=== PATIENT | female | born 1965 | race Caucasian/White ===

== ENCOUNTER 2016-12-10 15:26 | Inpatient (IN) | payer OTHER, MEDICAID ==
--- NOTE | 2016-12-10 15:56 | EDM.PDOC ---
ED HPI GENERAL MEDICAL PROBLEM - General Chief Complaint: Neurological Problem Stated Complaint: DELUSIONAL Time Seen by Provider: 12/10/16 15:28 - History of Present Illness INITIAL COMMENTS - FREE TEXT/NARRATIVE: HISTORY AND PHYSICAL: History of present illness: Patient is a 51-year-old female who was recently released from rehabilitation after her prolonged hospitalization for overdose with multisystem organ failure who presents today with concern of increased confusion no fever chills nausea vomiting, or other concern Review of systems: As per history of present illness and below otherwise all systems reviewed and negative. Past medical history: As per history of present illness and as reviewed below otherwise noncontributory. Surgical history: As per history of present illness and as reviewed below otherwise noncontributory. Social history: No reported history of drug or alcohol abuse. Family history: As per history of present illness and as reviewed below otherwise noncontributory. Physical exam: HEENT: Atraumatic, normocephalic, pupils reactive, negative for conjunctival pallor, mucous membranes moist, throat clear, neck supple, nontender, trachea midline. The feeding tube noted Lungs: Clear to auscultation, breath sounds equal bilaterally, chest nontender. Heart: S1S2, regular, negative for clicks, rubs, or JVD. Abdomen: Soft, nondistended, mild tenderness in the epigastrium patient daughter states this is chronic related to pancreatitis. Negative for masses or hepatosplenomegaly. Negative for costovertebral tenderness. Pelvis: Stable nontender. Genitourinary: Deferred. Rectal: Deferred. Extremities: Atraumatic, negative for cords or calf pain. Neurovascular unremarkable. Neuro: Awake, alert, follows commands moves all extremities is oriented to Person and Pl., Limited but grossly nonfocal exam Diagnostics: CBC CMP lipase UA urine drug screen and ammonia level chest x-ray EKG Therapeutics: IV O2 monitor Impression: #1 history multisystem organ failure #2 history of hepatic encephalopathy #3 altered mental status Definitive disposition and diagnosis as appropriate pending reevaluation and review of above. 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 Cardiovascular History: Reports: None Respiratory History: Reports: None Gastrointestinal History: Reports: Pancreatitis Genitourinary History: Reports: Acute Renal Failure EDUCATIONAL RESOURCE COORDINATOR History: Reports: None Musculoskeletal History: Reports: None Neurological History: Reports: Seizure, Speech Problems Psychiatric History: Reports: Addiction, Anxiety, Depression, PTSD Endocrine/Metabolic History: Reports: Diabetes, Type II Hematologic History: Reports: B12 Deficiency, Blood Transfusion(s), Folic Acid Immunologic History: Reports: Immunosuppression Oncologic (Cancer) History: Reports: None Dermatologic History: Reports: None - Past Surgical History Head Surgeries/Procedures: Reports: None Other GI Surgeries/Procedures: NG tube placed September 2016 Social & Family History - Family History Family Medical History: Noncontributory - Tobacco Use Smoking Status *Q: Former Smoker Used Tobacco, but Quit: Yes Month Tobacco Last Used: september - Caffeine Use Caffeine Use: Reports: Soda - Recreational Drug Use Recreational Drug Use: No ED ROS GENERAL - Review of Systems Review Of Systems: ROS reveals no pertinent complaints other than HPI. ED EXAM, GENERAL - Physical Exam Exam: See Below (See dictation) Course - Vital Signs Last Recorded V/S: Last Vital Signs Temp 36.4 C 12/10/16 15:34 Pulse 75 12/10/16 15:34 Resp 14 12/10/16 15:34 BP 104/64 12/10/16 15:34 Pulse Ox 98 12/10/16 15:34 - Orders/Labs/Meds Orders: Active Orders 24 hr Category Date Time Status EKG Documentation Completion [RC] STAT Care 12/10/16 15:49 Active Oxygen Therapy, ED [RC] ASDIRECTED Care 12/10/16 15:49 Active Chest 1V Frontal [CR] Stat Exams 12/10/16 15:50 Taken CULTURE BLOOD [BC] Stat Lab 12/10/16 15:58 Received CULTURE BLOOD [BC] Stat Lab 12/10/16 16:20 Results CULTURE URINE [RM] Stat Lab 12/10/16 15:56 Uncollected DRUG SCREEN, URINE [URCHEM] Stat Lab 12/10/16 15:50 Uncollected UA W/MICROSCOPIC [URIN] Stat Lab 12/10/16 15:49 Uncollected Sodium Chloride 0.9% [Normal Saline] 1,000 ml Med 12/10/16 16:00 Active IV STAT Blood Culture x2 Reflex Set [OM.PC] Stat Oth 12/10/16 15:56 Ordered Medication Orders Sodium Chloride (Normal Saline) 1,000 mls @ 125 mls/hr IV STAT RUBÉN Last Admin: 12/10/16 16:45 Dose: 125 mls/hr Labs: Laboratory Tests 12/10/16 12/10/16 12/10/16 Range/Units 15:58 15:58 15:58 WBC 9.85 (4.0-11.0) K/uL RBC 4.02 L (4.30-5.90) M/uL Hgb 11.9 L (12.0-16.0) g/dL Hct 34.3 L (36.0-46.0) % MCV 85.3 (80.0-98.0) fL MCH 29.6 (27.0-32.0) pg MCHC 34.7 (31.0-37.0) g/dL RDW Std Deviation 44.5 (28.0-62.0) fl RDW Coeff of Bert 14 (11.0-15.0) % Plt Count 266 (150-400) K/uL MPV 10.40 (7.40-12.00) fL Neut % (Auto) 69.5 (48.0-80.0) % Lymph % (Auto) 14.6 L (16.0-40.0) % [place] % (Auto) 14.6 (0.0-15.0) % Eos % (Auto) 1.0 (0.0-7.0) % Baso % (Auto) 0.3 (0.0-1.5) % Neut # (Auto) 6.8 H (1.4-5.7) K/uL Lymph # (Auto) 1.4 (0.6-2.4) K/uL [place] # (Auto) 1.4 H (0.0-0.8) K/uL Eos # (Auto) 0.1 (0.0-0.7) K/uL Baso # (Auto) 0.0 (0.0-0.1) K/uL Nucleated RBC % 0.0 /100WBC Nucleated RBCs # 0 K/uL Sodium 122 L (136-146) mmol/L Potassium 4.8 (3.5-5.1) mmol/L Chloride 94 L (98-110) mmol/L Carbon Dioxide 18 L (21-31) mmol/L BUN 18 (6.0-23.0) mg/dL Creatinine 1.0 (0.6-1.5) mg/dL Est Cr Clr Drug Dosing 53.23 mL/min Estimated GFR (MDRD) 58.7 ml/min Glucose 217 H (60-110) mg/dL Calcium 9.5 (8.8-10.8) mg/dL Total Bilirubin 0.8 (0.1-1.5) mg/dL AST 20 (5-40) IU/L ALT 12 (8-54) IU/L Alkaline Phosphatase 100 (40-150) Ammonia 124 H (14-68) UG/DL Total Protein 7.7 (6.0-8.0) g/dL Albumin 3.6 (3.5-5.0) g/dL Globulin 4.1 H (2.0-3.5) g/dL Albumin/Globulin Ratio 0.9 L (1.3-2.8) Amylase 14 (10-90) U/L Lipase < 8 (7-80) U/L Meds: Medications Generic Name Dose Route Start Last Admin Trade Name Freq PRN Reason Stop Dose Admin Sodium Chloride 1,000 mls @ 125 mls/hr 12/10/16 16:00 12/10/16 16:45 Normal Saline IV 125 mls/hr STAT RUBÉN Administration Discontinued Medications Generic Name Dose Route Start Last Admin Trade Name Freq PRN Reason Stop Dose Admin Ondansetron HCl 4 mg 12/10/16 16:42 12/10/16 16:48 Zofran IVPUSH 12/10/16 16:43 4 mg ONETIME ONE Administration Departure - Departure Time of Disposition: 17:11 Disposition: Admitted As Inpatient 67 Condition: good Clinical Impression: Hepatic encephalopathy, Hyponatremia - Discharge Information Forms: ED Department Discharge - My Orders Last 24 Hours: My Active Orders 12/10/16 15:49 EKG Documentation Completion [RC] STAT Oxygen Therapy, ED [RC] ASDIRECTED UA W/MICROSCOPIC [URIN] Stat 12/10/16 15:50 Chest 1V Frontal [CR] Stat DRUG SCREEN, URINE [URCHEM] Stat 12/10/16 15:56 CULTURE URINE [RM] Stat Blood Culture x2 Reflex Set [OM.PC] Stat 12/10/16 15:58 CULTURE BLOOD [BC] Stat 12/10/16 16:00 Sodium Chloride 0.9% [Normal Saline] 1,000 ml IV STAT 12/10/16 16:20 CULTURE BLOOD [BC] Stat - Assessment/Plan Last 24 Hours: My Active Orders 12/10/16 15:49 EKG Documentation Completion [RC] STAT Oxygen Therapy, ED [RC] ASDIRECTED UA W/MICROSCOPIC [URIN] Stat 12/10/16 15:50 Chest 1V Frontal [CR] Stat DRUG SCREEN, URINE [URCHEM] Stat 12/10/16 15:56 CULTURE URINE [RM] Stat Blood Culture x2 Reflex Set [OM.PC] Stat 12/10/16 15:58 CULTURE BLOOD [BC] Stat 12/10/16 16:00 Sodium Chloride 0.9% [Normal Saline] 1,000 ml IV STAT 12/10/16 16:20 CULTURE BLOOD [BC] Stat
[2016-12-10] MEDS ORDERED: Sodium Chloride 0.9% 1,000 ML IV SCH (16:00)
[2016-12-10 16:35] LABS: CHLORIDE,CL 94 mmol/L (98-110); SODIUM,NA 122 mmol/L (136-146)
[2016-12-10] MEDS ORDERED: Ondansetron 4 MG/2 ML SDV IVPUSH ONE (16:42)
[2016-12-10] MEDS ORDERED: oxyCODONE 5 MG Tab PO ONE (17:56)
--- NOTE | 2016-12-10 18:10 | PCM.HP ---
H&P History of Present Illness - General Date of Service: 12/10/16 Admit Problem/Dx: metabolic encephalopathy Source of Information: Patient, Family History Limitations: Reports: No Limitations, Other (profoundly deaf) - History of Present Illness Initial Comments - Free Text/Narative: Dec 10, 2016: The patient is a 51-year-old lady who is presented to the emergency department with reported neurologic concerns. The patient has been admitted secondary to likely neurologic issues do to hyperammonemia. The patient will be admitted as observation.The patient is profoundly deaf from and is an accomplished lip reader. Patient's daughter is also with her. The patient is here out of concern for not having a primary care physician to followup with. The patient also had been recently released from hospitalization for prolonged visit secondary to multisystem organ failure along with rehabilitation. The patient accidentally had consumed large quantities of Tylenol PM and this had resulted in both hepatic and pancreatic damage. The patient has been fed with tube feedings via J-tube and is on pancreatic supplementation. The patient was admitted and noted to have an ammonia level at 124 mg/dL. The patient is alert and responsive to questioning and has been on outpatient lactulose as well. The patient has denied any fever or chills. She has had no nausea or vomiting. The patient's daughter was concerned about her confusion. The patient has been concerned about bloating from her parenteral feeding. She is wanting to have this formulation adjusted to help prevent some of the bloating and abdominal pain. The patient has been doing relatively well and she is concerned about being in the hospital once again. The patient has been in her usual state of health up at the present time. The patient has been able to participate in her history and physical. Onset of Symptoms: Reports: Gradual Duration of Symptoms: Reports: Day(s): Location: Reports: Head Quality: Reports: Other Severity: Mild Improves with: Reports: Medication Worsens with: Reports: None Associated Symptoms: Reports: Other Abdominal Pain Score (Numeric/FACES): 8 - Related Data Allergies/Adverse Reactions: Allergies Allergy/AdvReac Type Severity Reaction Status Date / Time No Known Allergies Allergy Verified 12/10/16 15:38 Home Medications: Home Meds Amylase/Lipase/Protease [Deisi GARCIA 24,000 Units] 1 cap PO 6XDAY 12/10/16 [History ] Citalopram [Celexa] 20 mg PO DAILY 12/10/16 [History] Insulin Glargine,Hum.Rec.Anlog [Lantus Solostar] 24 unit SQ BEDTIME 12/10/16 [ History] Lactulose 10 gm PO BEDTIME 12/10/16 [History] Magnesium Oxide [Magnesium] 400 mg PO BID 12/10/16 [History] Ondansetron [Zofran ODT] 4 mg PO Q8H 12/10/16 [History] Pantoprazole [ProTONIX] 40 mg PO BIDAC 12/10/16 [History] Spironolactone [Aldactone] 100 mg PO DAILY 12/10/16 [History] Thiamine [Vitamin B-1] 100 mg PO BEDTIME 12/10/16 [History] fentaNYL [Fentanyl] 75 mcg PERCUT 12/10/16 [History] oxyCODONE 5 mg PO Q4HR PRN 12/10/16 [History] Past Medical History HEENT History: Reports: Hard of Hearing Other HEENT History: 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, 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 Cardiovascular History: Reports: None Respiratory History: Reports: None Gastrointestinal History: Reports: Hepatitis, Pancreatitis Genitourinary History: Reports: Acute Renal Failure POST OFFICE MANAGER History: Reports: None Musculoskeletal History: Reports: None Neurological History: Reports: Seizure, Speech Problems Psychiatric History: Reports: Addiction, Anxiety, Depression, PTSD Endocrine/Metabolic History: Reports: Diabetes, Type II Hematologic History: Reports: B12 Deficiency, Blood Transfusion(s), Folic Acid Immunologic History: Reports: Immunosuppression Oncologic (Cancer) History: Reports: None Dermatologic History: Reports: None - Past Surgical History Head Surgeries/Procedures: Reports: None Other GI Surgeries/Procedures: NG tube placed September 2016 Social & Family History - Family History Family Medical History: Noncontributory - Tobacco Use Smoking Status *Q: Former Smoker Used Tobacco, but Quit: Yes Month Tobacco Last Used: september - Caffeine Use Caffeine Use: Reports: Soda - Recreational Drug Use Recreational Drug Use: No H&P Review of Systems - Review of Systems: Review Of Systems: See Below General: Reports: Malaise, Weakness, Decreased Appetite HEENT: Reports: No Symptoms Pulmonary: Reports: No Symptoms Cardiovascular: Reports: No Symptoms Gastrointestinal: Reports: Abdominal Pain, Distension Genitourinary: Reports: No Symptoms Musculoskeletal: Reports: No Symptoms Skin: Reports: No Symptoms Psychiatric: Reports: No Symptoms Neurological: Reports: Confusion Hematologic/Lymphatic: Reports: No Symptoms Immunologic: Reports: No Symptoms Exam - Exam Exam: See Below - Vital Signs Vital Signs: Last Vital Signs Temp 36.4 C 12/10/16 15:34 Pulse 80 12/10/16 17:54 Resp 16 12/10/16 17:54 BP 104/64 12/10/16 15:34 Pulse Ox 98 12/10/16 17:54 Weight: 61.235 kg - Exam Quality Assessment: No: Supplemental Oxygen General: Alert, Oriented, Cooperative, Mild Distress HEENT: Conjunctiva Clear, Mucosa Moist & [place], Nares Patent. No: Hearing Intact Neck: Supple, Trachea Midline Lungs: Clear to Auscultation, Normal Respiratory Effort Cardiovascular: Regular Rate, Regular Rhythm Abdomen: Soft, Distention, Tenderness (diffuse periumbilical), Other (J-tube feeding in place). No: Guarding, Rigidity Back Exam: Decreased Range of Motion Extremities: Normal Inspection Skin: Warm, Dry, Intact Neuro Extensive - Mental Status: Alert, Oriented x3 Neuro Extensive - Motor, Sensory, Reflexes: CN II-XII Intact Psychiatric: Alert, Normal Affect, Normal Mood - Patient Data Result Diagrams: 12/11/16 04:54 12/11/16 04:54 *Q Meaningful Use (ADM) - VTE *Q VTE Criteria *Q: - Stroke *Q Stroke Criteria *Q: - AMI *Q AMI Criteria *Q: - Problem List (1) Hepatic encephalopathy SNOMED Code(s): 79405550 ICD Code: K72.90 - HEPATIC FAILURE, UNSPECIFIED WITHOUT COMA Status: Chronic Priority: High Current Visit: Yes (2) Coagulation defect SNOMED Code(s): 01152605 ICD Code: D68.9 - COAGULATION DEFECT, UNSPECIFIED Status: Chronic Priority: High Current Visit: Yes (3) Secondary pancreatic insufficiency SNOMED Code(s): 031625343 ICD Code: K86.89 - OTHER SPECIFIED DISEASES OF PANCREAS Status: Chronic Priority: High Current Visit: Yes (4) Hyperammonemia SNOMED Code(s): 7883809 ICD Code: E72.20 - DISORDER OF UREA CYCLE METABOLISM, UNSPECIFIED Status: Acute Priority: High Current Visit: Yes (5) Small bowel tube feeding SNOMED Code(s): 991467201, 119660471 ICD Code: Z93.4 - OTHER ARTIFICIAL OPENINGS OF GASTROINTESTINAL TRACT STATUS Status: Chronic Priority: High Current Visit: Yes (6) Hyponatremia SNOMED Code(s): 45660768 ICD Code: E87.1 - HYPO-OSMOLALITY AND HYPONATREMIA Status: Acute Priority : High Current Visit: Yes Problem List Initiated/Reviewed/Updated: Yes Orders Last 24hrs: Active Orders 24 hr Category Date Time Status Patient Status [ADT] Routine ADT 12/10/16 17:59 Ordered Ambulate [RC] PER UNIT ROUTINE Care 12/10/16 18:01 Ordered Oxygen Therapy [RC] PRN Care 12/10/16 17:59 Ordered Up ad Anastasia [RC] ASDIRECTED Care 12/10/16 17:59 Ordered VTE/DVT Education [RC] PER UNIT ROUTINE Care 12/10/16 17:59 Ordered Vital Signs [RC] Q4H Care 12/10/16 17:59 Ordered Consult to Orthodontist Small Business Owner [CONS] Routine Cons 12/10/16 17:59 Ordered Nothing per Oral After Midnight Diet [DIET] Diet 12/11/16 Breakfast Ordered AMMONIA VENOUS [CHEM] Routine Lab 12/11/16 05:00 Ordered CBC WITH AUTO DIFF [HEME] AM Lab 12/11/16 05:11 Ordered COMPREHENSIVE METABOLIC PN,CMP [CHEM] AM Lab 12/11/16 05:11 Ordered INR,PT,PROTHROMBIN TIME [COAG] AM Lab 12/11/16 05:11 Ordered INR,PT,PROTHROMBIN TIME [COAG] AM Lab 12/12/16 05:11 Ordered INR,PT,PROTHROMBIN TIME [COAG] AM Lab 12/13/16 05:11 Ordered Amylase/Lipase/Protease [Deisi GARCIA 24,000 Units] Med 12/10/16 21:00 Ordered 1 cap PO 6XDAY Citalopram [Celexa] Med 12/11/16 09:00 Ordered 20 mg PO DAILY HYDROmorphone [Dilaudid] Med 12/10/16 17:59 Ordered 0.5 mg IVPUSH Q2H PRN Insulin Glarg,Human.Rec.Analog [LantUS Solostar] Med 12/10/16 21:00 Ordered 24 units SUBCUT BEDTIME Lactose [Lactose] Med 12/10/16 21:00 Ordered 1 gm MC BEDTIME Ondansetron [Zofran] Med 06/01/17 17:59 Ordered 4 mg IVPUSH Q8H PRN Sodium Chloride 0.9% @ 125 MLS/HR (1000ml) Med 12/10/16 18:00 Ordered Sodium Chloride 0.9% [Normal Saline] 1,000 ml IV ASDIRECTED Temazepam [Restoril] Med 12/10/16 17:59 Ordered 15 mg PO BEDTIME PRN fentaNYL [Fentanyl] Med 12/10/16 18:15 Unverified DOSE UNIT RTE FREQ Resuscitation Status Routine Resus Stat 12/10/16 17:59 Ordered Medication Orders Lipase/Protease/Amylase (Creon Dr 24,000 Units) 1 cap PO 6XDAY RUBÉN Citalopram Hydrobromide (Celexa) 20 mg PO DAILY RUBÉN Hydromorphone HCl (Dilaudid) 0.5 mg IVPUSH Q2H PRN PRN Reason: Pain (severe 7-10) Sodium Chloride (Normal Saline) 1,000 mls @ 125 mls/hr IV STAT RUBÉN Last Admin: 12/10/16 16:45 Dose: 125 mls/hr Sodium Chloride (Normal Saline) 1,000 mls @ 125 mls/hr IV ASDIRECTED RUBÉN Insulin Glargine (Lantus Solostar) 24 units SUBCUT BEDTIME RUBÉN Non-Formulary Medication (Lactose [Lactose]) 1 gm MC BEDTIME RUBÉN Ondansetron HCl (Zofran) 4 mg IVPUSH Q8H PRN PRN Reason: Nausea/Vomiting Temazepam (Restoril) 15 mg PO BEDTIME PRN PRN Reason: Sleep Assessment/Plan Comment:: Dec 10, 2016: The patient has been admitted for observation secondary to her ammonia level. The ammonia level be retested. I've also ordered dietary consult with regards to formulation for her J-tube feeding. The patient does not have any specific evidence of confusion and I suspect that her profound hearing deficit may likely be contributing to the perception of confusion. Regardless the patient will be admitted for electrolyte correction as she was also found to be severely hyponatremic with a sodium of 122. Patient's sodium is likely secondary to her pancreatic insufficiency and hepatic injury. Patient will have pain control with use the oxycodone and hydromorphone. The patient is also on a fentanyl patch. This will be continued. I've also ordered a comprehensive metabolic panel, ammonia level, CBC for the patient in the morning. The patient will also have a PT/INR followed as the patient is likely coagulopathic secondary to her hepatic injury. Patient has been encouraged to ambulate. The patient has exhibited sufficient improvement in her pain is controlled and she has discussed the feeding with the dietitian she likely can be appropriate for discharge later tomorrow. The patient will be evaluated and her treatment plan will be adjusted as conditions and information indicates.
[2016-12-10] MEDS ORDERED: Lactulose Soln 10 GM/15 ML 15 ML UD Cup PO SCH (21:00)
[2016-12-10] MEDS ORDERED: Amylase/Lipase/Protease 24,000 Unit Cap.CR PO SCH (21:00)
[2016-12-10] MEDS ORDERED: LACTOSE MC SCH (21:00)
[2016-12-10] MEDS: Insulin Glargine,Human Rec. Analog 100 Units/ML 3 ML Pen SUBCUT SCH (22:34)
[2016-12-10] MEDS: cefTRIAXone 1 GM in Premix Bag 1 BAG IV SCH (23:18)
[2016-12-11] MEDS: Sodium Chloride 0.9% 1,000 ML IV SCH ×4 (00:11→23:06)
[2016-12-11] MEDS: HYDROmorphone 2 MG/ML Syringe IVPUSH PRN ×3 (04:53→11:12)
[2016-12-11 05:41] LABS: CHLORIDE,CL 102 mmol/L (98-110); SODIUM,NA 127 mmol/L (136-146)
[2016-12-11] MEDS: fentaNYL 75 MCG/HR Transdermal Patch TRDERM SCH (06:01)
[2016-12-11] MEDS: CREON PO SCH ×6 (06:01→20:52)
[2016-12-11] MEDS: Citalopram 20 MG Tab PO SCH (08:31)
--- NOTE | 2016-12-11 09:49 | PCM.PN ---
<Baluch,Marc - Last Filed: 12/11/16 19:30> - General Info Date of Service: 12/11/16 Admission Dx/Problem (Free Text): metabolic encephalopathy Subjective Update: PAtient complains of burning abdominal pain. Patient still confused. Functional Status: Denies: pain controlled, tolerating diet, ambulating - Review of Systems General: Reports: No Symptoms. Denies: Fever HEENT: Reports: no symptoms Pulmonary: Reports: no symptoms Cardiovascular: Reports: No Symptoms Gastrointestinal: Reports: Abdominal pain Genitourinary: Reports: dysuria Musculoskeletal: Reports: no symptoms Skin: Reports: no symptoms Neurological: Reports: Confusion Psychiatric: Reports: no symptoms - Patient Data Vitals - most recent: Last Vital Signs Temp 36.7 C 12/11/16 07:40 Pulse 66 12/11/16 07:40 Resp 16 12/11/16 07:40 BP 92/36 L 12/11/16 08:55 Pulse Ox 96 12/11/16 07:40 Weight - most recent: 61.235 kg I&O - last 24 hours: Intake & Output 12/10/16 12/11/16 12/11/16 22:59 06:59 14:59 Intake Total 831 1000 Output Total 800 Balance 31 1000 Lab Results last 24 hrs: Laboratory Results - last 24 hr 12/10/16 12/10/16 12/10/16 Range/Units 21:46 22:20 22:20 WBC (4.0-11.0) K/uL RBC (4.30-5.90) M/uL Hgb (12.0-16.0) g/dL Hct (36.0-46.0) % MCV (80.0-98.0) fL MCH (27.0-32.0) pg MCHC (31.0-37.0) g/dL RDW Std Deviation (28.0-62.0) fl RDW Coeff of Bert (11.0-15.0) % Plt Count (150-400) K/uL MPV (7.40-12.00) fL Add Manual Diff Neutrophils % (Manual) (48.0-80.0) % Band Neutrophils % % Lymphocytes % (Manual) (16.0-40.0) % Monocytes % (Manual) (0.0-15.0) % Eosinophils % (Manual) (0.0-7.0) % Basophils % (Manual) (0.0-1.5) % Nucleated RBC % /100WBC Absolute Seg Neuts Band Neutrophils # Lymphocytes # (Manual) Monocytes # (Manual) Eosinophils # (Manual) Basophils # (Manual) Nucleated RBCs # K/uL INR (0.86-1.11) Sodium (136-146) mmol/L Potassium (3.5-5.1) mmol/L Chloride (98-110) mmol/L Carbon Dioxide (21-31) mmol/L BUN (6.0-23.0) mg/dL Creatinine (0.6-1.5) mg/dL Est Cr Clr Drug Dosing mL/min Estimated GFR (MDRD) ml/min Glucose (60-110) mg/dL POC Glucose 109 (60-110) mg/dL Calcium (8.8-10.8) mg/dL Total Bilirubin (0.1-1.5) mg/dL AST (5-40) IU/L ALT (8-54) IU/L Alkaline Phosphatase (40-150) Ammonia (14-68) UG/DL Total Protein (6.0-8.0) g/dL Albumin (3.5-5.0) g/dL Globulin (2.0-3.5) g/dL Albumin/Globulin Ratio (1.3-2.8) Urine Color YELLOW Urine Appearance CLEAR Urine pH 6.0 (5.0-8.0) Ur Specific [place] <= 1.005 (1.001-1.035) Urine Protein NEGATIVE (NEGATIVE) mg/dL Urine Glucose (UA) NEGATIVE (NEGATIVE) mg/dL Urine Ketones NEGATIVE (NEGATIVE) mg/dL Urine Occult Blood NEGATIVE (NEGATIVE) Urine Nitrite POSITIVE H (NEGATIVE) Urine Bilirubin NEGATIVE (NEGATIVE) Urine Urobilinogen 0.2 (<2.0) EU/dL Ur Leukocyte Esterase NEGATIVE (NEGATIVE) Urine RBC 0-1 (0-2/HPF) Urine WBC 0-2 (0-5/HPF) Ur Epithelial Cells FEW (NONE-FEW) Urine Bacteria 1+ H (NEGATIVE) Urine Opiates Screen NEGATIVE (NEGATIVE) Ur Oxycodone Screen POSITIVE (NEGATIVE) Urine Methadone Screen NEGATIVE (NEGATIVE) Ur Barbiturates Screen NEGATIVE (NEGATIVE) Ur Phencyclidine Scrn NEGATIVE (NEGATIVE) Ur Amphetamine Screen NEGATIVE (NEGATIVE) U Methamphetamines Scrn NEGATIVE (NEGATIVE) U Benzodiazepines Scrn NEGATIVE (NEGATIVE) U Cocaine Metab Screen NEGATIVE (NEGATIVE) U Marijuana (THC) Screen NEGATIVE (NEGATIVE) 12/11/16 12/11/16 12/11/16 Range/Units 04:54 04:54 04:54 WBC 9.38 (4.0-11.0) K/uL RBC 3.77 L (4.30-5.90) M/uL Hgb 10.9 L (12.0-16.0) g/dL Hct 32.4 L (36.0-46.0) % MCV 85.9 (80.0-98.0) fL MCH 28.9 (27.0-32.0) pg MCHC 33.6 (31.0-37.0) g/dL RDW Std Deviation 44.8 (28.0-62.0) fl RDW Coeff of Bert 14 (11.0-15.0) % Plt Count 258 (150-400) K/uL MPV 9.90 (7.40-12.00) fL Add Manual Diff YES Neutrophils % (Manual) 65 (48.0-80.0) % Band Neutrophils % 2 % Lymphocytes % (Manual) 12 L (16.0-40.0) % Monocytes % (Manual) 18 H (0.0-15.0) % Eosinophils % (Manual) 1 (0.0-7.0) % Basophils % (Manual) 2 H (0.0-1.5) % Nucleated RBC % 0.0 /100WBC Absolute Seg Neuts 6.1 Band Neutrophils # 0.2 Lymphocytes # (Manual) 1.1 Monocytes # (Manual) 1.7 Eosinophils # (Manual) 0.1 Basophils # (Manual) 0 Nucleated RBCs # 0 K/uL INR (0.86-1.11) Sodium 127 L (136-146) mmol/L Potassium 4.3 (3.5-5.1) mmol/L Chloride 102 (98-110) mmol/L Carbon Dioxide 17 L (21-31) mmol/L BUN 13 (6.0-23.0) mg/dL Creatinine 0.8 (0.6-1.5) mg/dL Est Cr Clr Drug Dosing 66.54 mL/min Estimated GFR (MDRD) > 60.0 ml/min Glucose 122 H (60-110) mg/dL POC Glucose (60-110) mg/dL Calcium 8.5 L (8.8-10.8) mg/dL Total Bilirubin 0.7 (0.1-1.5) mg/dL AST 19 (5-40) IU/L ALT 11 (8-54) IU/L Alkaline Phosphatase 85 (40-150) Ammonia 66 (14-68) UG/DL Total Protein 6.4 (6.0-8.0) g/dL Albumin 3.2 L (3.5-5.0) g/dL Globulin 3.2 (2.0-3.5) g/dL Albumin/Globulin Ratio 1.0 L (1.3-2.8) Urine Color Urine Appearance Urine pH (5.0-8.0) Ur Specific [place] (1.001-1.035) Urine Protein (NEGATIVE) mg/dL Urine Glucose (UA) (NEGATIVE) mg/dL Urine Ketones (NEGATIVE) mg/dL Urine Occult Blood (NEGATIVE) Urine Nitrite (NEGATIVE) Urine Bilirubin (NEGATIVE) Urine Urobilinogen (<2.0) EU/dL Ur Leukocyte Esterase (NEGATIVE) Urine RBC (0-2/HPF) Urine WBC (0-5/HPF) Ur Epithelial Cells (NONE-FEW) Urine Bacteria (NEGATIVE) Urine Opiates Screen (NEGATIVE) Ur Oxycodone Screen (NEGATIVE) Urine Methadone Screen (NEGATIVE) Ur Barbiturates Screen (NEGATIVE) Ur Phencyclidine Scrn (NEGATIVE) Ur Amphetamine Screen (NEGATIVE) U Methamphetamines Scrn (NEGATIVE) U Benzodiazepines Scrn (NEGATIVE) U Cocaine Metab Screen (NEGATIVE) U Marijuana (THC) Screen (NEGATIVE) 12/11/16 Range/Units 04:54 WBC (4.0-11.0) K/uL RBC (4.30-5.90) M/uL Hgb (12.0-16.0) g/dL Hct (36.0-46.0) % MCV (80.0-98.0) fL MCH (27.0-32.0) pg MCHC (31.0-37.0) g/dL RDW Std Deviation (28.0-62.0) fl RDW Coeff of Bert (11.0-15.0) % Plt Count (150-400) K/uL MPV (7.40-12.00) fL Add Manual Diff Neutrophils % (Manual) (48.0-80.0) % Band Neutrophils % % Lymphocytes % (Manual) (16.0-40.0) % Monocytes % (Manual) (0.0-15.0) % Eosinophils % (Manual) (0.0-7.0) % Basophils % (Manual) (0.0-1.5) % Nucleated RBC % /100WBC Absolute Seg Neuts Band Neutrophils # Lymphocytes # (Manual) Monocytes # (Manual) Eosinophils # (Manual) Basophils # (Manual) Nucleated RBCs # K/uL INR 1.19 H (0.86-1.11) Sodium (136-146) mmol/L Potassium (3.5-5.1) mmol/L Chloride (98-110) mmol/L Carbon Dioxide (21-31) mmol/L BUN (6.0-23.0) mg/dL Creatinine (0.6-1.5) mg/dL Est Cr Clr Drug Dosing mL/min Estimated GFR (MDRD) ml/min Glucose (60-110) mg/dL POC Glucose (60-110) mg/dL Calcium (8.8-10.8) mg/dL Total Bilirubin (0.1-1.5) mg/dL AST (5-40) IU/L ALT (8-54) IU/L Alkaline Phosphatase (40-150) Ammonia (14-68) UG/DL Total Protein (6.0-8.0) g/dL Albumin (3.5-5.0) g/dL Globulin (2.0-3.5) g/dL Albumin/Globulin Ratio (1.3-2.8) Urine Color Urine Appearance Urine pH (5.0-8.0) Ur Specific [place] (1.001-1.035) Urine Protein (NEGATIVE) mg/dL Urine Glucose (UA) (NEGATIVE) mg/dL Urine Ketones (NEGATIVE) mg/dL Urine Occult Blood (NEGATIVE) Urine Nitrite (NEGATIVE) Urine Bilirubin (NEGATIVE) Urine Urobilinogen (<2.0) EU/dL Ur Leukocyte Esterase (NEGATIVE) Urine RBC (0-2/HPF) Urine WBC (0-5/HPF) Ur Epithelial Cells (NONE-FEW) Urine Bacteria (NEGATIVE) Urine Opiates Screen (NEGATIVE) Ur Oxycodone Screen (NEGATIVE) Urine Methadone Screen (NEGATIVE) Ur Barbiturates Screen (NEGATIVE) Ur Phencyclidine Scrn (NEGATIVE) Ur Amphetamine Screen (NEGATIVE) U Methamphetamines Scrn (NEGATIVE) U Benzodiazepines Scrn (NEGATIVE) U Cocaine Metab Screen (NEGATIVE) U Marijuana (THC) Screen (NEGATIVE) Med Orders - Current: Current Medications Citalopram Hydrobromide (Celexa) 20 mg PO DAILY [facility] Last Admin: 12/11/16 08:31 Dose: 20 mg Fentanyl (Duragesic) 75 mcg TRDERM Q72H [facility] Last Admin: 12/11/16 06:01 Dose: 75 mcg Hydromorphone HCl (Dilaudid) 0.5 mg IVPUSH Q2H PRN PRN Reason: Pain (severe 7-10) Last Admin: 12/11/16 07:41 Dose: 0.5 mg Sodium Chloride (Normal Saline) 1,000 mls @ 125 mls/hr IV STAT [facility] Last Admin: 12/10/16 16:45 Dose: 125 mls/hr Sodium Chloride (Normal Saline) 1,000 mls @ 125 mls/hr IV ASDIRECTED [facility] Last Admin: 12/11/16 07:48 Dose: 125 mls/hr Ceftriaxone Sodium/Dextrose 1 (gm/ Premix) 50 mls @ 100 mls/hr IV Q24H [facility] Last Admin: 12/10/16 23:18 Dose: 100 mls/hr Pantoprazole Sodium 40 mg/ (Sodium Chloride) 10 mls @ 300 mls/hr IVPUSH Q24H [facility] Insulin Glargine (Lantus Solostar) 24 units SUBCUT BEDTIME [facility] Last Admin: 12/10/16 22:34 Dose: Not Given Lactulose (Chronulac) 10 gm PO BEDTIME [facility] Last Admin: 12/10/16 22:32 Dose: 10 gm Ondansetron HCl (Zofran) 4 mg IVPUSH Q8H PRN PRN Reason: Nausea/Vomiting Patient's Own MedicationCreon Cr 24k Units 1 each PO 6XDAY [facility] Last Admin: 12/11/16 08:31 Dose: 1 each Temazepam (Restoril) 15 mg PO BEDTIME PRN PRN Reason: Sleep Discontinued Medications Lipase/Protease/Amylase (Creon Dr 24,000 Units) 1 cap PO 6XDAY [facility] Last Admin: 12/10/16 22:33 Dose: 1 cap Non-Formulary Medication (Lactose [Lactose]) 1 gm MC BEDTIME RUBÉN Ondansetron HCl (Zofran) 4 mg IVPUSH ONETIME ONE Stop: 12/10/16 16:43 Last Admin: 12/10/16 16:48 Dose: 4 mg Oxycodone HCl (Oxycodone) 5 mg PO ONETIME ONE Stop: 12/10/16 17:57 Last Admin: 12/10/16 18:15 Dose: 5 mg - Exam General: moderate distress. No: alert, oriented HEENT: Scleral icterus Neck: no JVD Lungs: Normal respiratory effort Cardiovascular: Regular Rate, Regular Rhythm Abdomen: tenderness, organomegaly. No: rigidity, rebound, distension, CVA tenderness Extremities: no edema Skin: other (jaundice) - Problem List Review Problem List Initiated/Reviewed/Updated: Yes - My Orders Last 24 Hours: My Active Orders 12/11/16 09:26 Abdomen Comp [US] Routine 12/11/16 09:30 Pantoprazole [ProTONIX IV] 40 mg Sodium Chloride 0.9% [Normal Saline] 10 ml IVPUSH Q24H 12/11/16 16:00 BASIC METABOLIC PANEL,BMP [CHEM] Routine - Plan Plan:: 12/11/16 Assessment: 1. Multisystem Organ Failure 2. Liver Failure 3. Pancreatic Failure 4. Diffuse burning abdominal pain 5. Hepatic encephalopathy, improved 6. Hyponatremia 7. Hypotension 8. UTI Plan: 1. awaiting dietary consult for TPN 2. Abdominal US 3. continue Lactulose, once TPN then we will titrate Lactulose to achieve 2-3 bm /day 4. Continue IV NS 5. repeat BMP in evening 6. allow PO meds 7. continue to hold BP meds 8. start Protonix IV 40 mg daily 9. CBC/CMP/INR/Mg in AM 10. Start Ceftriaxone for UTI and f/u on UC 11. as per orders Dec 10, 2016 The patient has been admitted for observation secondary to her ammonia level. The ammonia level be retested. I've also ordered dietary consult with regards to formulation for her J-tube feeding. The patient does not have any specific evidence of confusion and I suspect that her profound hearing deficit may likely be contributing to the perception of confusion. Regardless the patient will be admitted for electrolyte correction as she was also found to be severely hyponatremic with a sodium of 122. Patient's sodium is likely secondary to her pancreatic insufficiency and hepatic injury. Patient will have pain control with use the oxycodone and hydromorphone. The patient is also on a fentanyl patch. This will be continued. I've also ordered a comprehensive metabolic panel, ammonia level, CBC for the patient in the morning. The patient will also have a PT/INR followed as the patient is likely coagulopathic secondary to her hepatic injury. Patient has been encouraged to ambulate. The patient has exhibited sufficient improvement in her pain is controlled and she has discussed the feeding with the dietitian she likely can be appropriate for discharge later tomorrow. The patient will be evaluated and her treatment plan will be adjusted as conditions and information indicates. <Bobby Benz - Last Filed: 12/12/16 15:58> - General Info Admission Dx/Problem (Free Text): I was present with the resident during history and examination. I discussed the case with the resident and agree with the findings and plan as documented in the residents note. - Patient Data Vitals - most recent: Last Vital Signs Temp 36.4 C 12/12/16 12:00 Pulse 74 12/12/16 12:00 Resp 16 12/12/16 12:00 BP 99/54 L 12/12/16 12:00 Pulse Ox 99 12/12/16 12:00 Med Orders - Current: Current Medications Citalopram Hydrobromide (Celexa) 20 mg PO DAILY [facility] Last Admin: 12/12/16 09:27 Dose: 20 mg Fentanyl (Duragesic) 75 mcg TRDERM Q72H [facility] Last Admin: 12/11/16 06:01 Dose: 75 mcg Hydromorphone HCl (Dilaudid) 0.5 mg IVPUSH Q2H PRN PRN Reason: Pain (severe 7-10) Last Admin: 12/11/16 11:12 Dose: 0.5 mg Sodium Chloride (Normal Saline) 1,000 mls @ 125 mls/hr IV ASDIRECTED [facility] Last Admin: 12/12/16 15:21 Dose: 125 mls/hr Ceftriaxone Sodium/Dextrose 1 (gm/ Premix) 50 mls @ 100 mls/hr IV Q24H [facility] Last Admin: 12/11/16 23:06 Dose: 100 mls/hr Pantoprazole Sodium 40 mg/ (Sodium Chloride) 10 mls @ 300 mls/hr IVPUSH Q24H [facility] Last Admin: 12/12/16 09:27 Dose: 300 mls/hr Insulin Glargine (Lantus Solostar) 24 units SUBCUT BEDTIME [facility] Last Admin: 12/11/16 21:02 Dose: 24 units Lactulose (Chronulac) 10 gm PO BID [facility] Last Admin: 12/12/16 09:27 Dose: 10 gm Ondansetron HCl (Zofran) 4 mg IVPUSH Q8H PRN PRN Reason: Nausea/Vomiting Oxycodone HCl (Oxycodone) 10 mg PO Q6H [facility] Last Admin: 12/12/16 11:08 Dose: 10 mg Patient's Own MedicationCreon Cr 24k Units 1 each PO 6XDAY [facility] Last Admin: 12/12/16 14:07 Dose: 1 each Temazepam (Restoril) 15 mg PO BEDTIME PRN PRN Reason: Sleep Last Admin: 12/11/16 20:52 Dose: 15 mg Discontinued Medications Lipase/Protease/Amylase (Creon Dr 24,000 Units) 1 cap PO 6XDAY [facility] Last Admin: 12/10/16 22:33 Dose: 1 cap Sodium Chloride (Normal Saline) 1,000 mls @ 125 mls/hr IV STAT [facility] Last Admin: 12/10/16 16:45 Dose: 125 mls/hr Ceftriaxone Sodium/Dextrose 1 (gm/ Premix) 50 mls @ 100 mls/hr IV Q24H [facility] Last Admin: 12/11/16 20:20 Dose: Not Given Lactulose (Chronulac) 10 gm PO BEDTIME [facility] Last Admin: 12/10/16 22:32 Dose: 10 gm Non-Formulary Medication (Lactose [Lactose]) 1 gm MC BEDTIME [facility] Ondansetron HCl (Zofran) 4 mg IVPUSH ONETIME ONE Stop: 12/10/16 16:43 Last Admin: 12/10/16 16:48 Dose: 4 mg Oxycodone HCl (Oxycodone) 5 mg PO ONETIME ONE Stop: 12/10/16 17:57 Last Admin: 12/10/16 18:15 Dose: 5 mg Oxycodone HCl (Oxycodone) 10 mg PO Q6H PRN PRN Reason: Pain - Problem List & Annotations (1) Hyponatremia syndrome SNOMED Code(s): 6398187 Code(s): E87.1 - HYPO-OSMOLALITY AND HYPONATREMIA Status: Acute Priority : High Current Visit: Yes (2) 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
[2016-12-11] MEDS: Pantoprazole 40 MG in Sodium Chloride 0.9% 10 ML IVPUSH SCH (09:53)
--- NOTE | 2016-12-11 10:53 | CR ---
EXAM DATE: 12/10/16 PATIENT'S AGE: 51 Patient: MARY ELLEN CHIU Facility: [place], [place] Site . Site : 1965 Study: XRay Chest [id number]/1/2017 5:03:38 PM Ordering Physician: Raina Andrews Final Report: INDICATIONS: Pain. Shortness of breath. TECHNIQUE: Chest 1 view portable. COMPARISON: None FINDINGS: Feeding tube extends into the stomach and terminates in the proximal jejunum, beyond the field of view. Elevation of the right hemidiaphragm. No pneumothorax , pleural effusion or airspace consolidation. Cardiac and mediastinal contours are within normal limits. Upper abdomen and osseous structures show no acute abnormality. IMPRESSION: No evidence of acute cardiopulmonary disease. Feeding tube extends into the jejunum, beyond the field of view. Dictated by Sunday Rich MD @ 12/10/2016 5:38:14 PM Dictated by: Sunday Rich MD @ 12/10/2016 17:38:25 (Electronic Signature) Report Signed by Proxy. [facility]
[2016-12-11] MEDS ORDERED: oxyCODONE 5 MG Tab PO PRN (10:59)
[2016-12-11] MEDS: oxyCODONE 5 MG Tab PO SCH ×3 (11:20→23:06)
--- NOTE | 2016-12-11 15:03 | US ---
EXAM DATE: 12/10/16 PATIENT'S AGE: 51 Patient: MARY ELLEN CHIU Facility: [place], [place] Site . Site : 1965 Study: US Abdomen [id number]/2/2017 12:24:38 PM Ordering Physician: Tuyet Rosales Final Report: INDICATION: Abdominal pain. History of liver disease and pancreatitis. TECHNIQUE: Ultrasound abdomen complete. Sonographic images of the entire abdomen were obtained using junior-scale and color Doppler. COMPARISON: None available. FINDINGS: Liver: Diffuse heterogeneous echotexture apparent irregularity of the liver contour. No focal lesion demonstrated. Gallbladder: No stones or sludge. Normal wall thickness. No pericholecystic fluid. Common bile duct: 3 mm. Pancreas: Unremarkable as imaged. No peripancreatic fluid collection evident. Spleen: Normal in size and appearance. Right kidney: 10.5 cm in length. Normal echotexture and cortex. No masses, stones, or hydronephrosis. Left kidney: 12.3 cm in length. Normal echotexture and cortex. No masses, stones , or hydronephrosis. Vasculature: Visualized aorta and IVC are normal in caliber. No free fluid evident. IMPRESSION: Diffuse heterogeneous echotexture of the liver with apparent irregularity of the liver contour, worrisome for cirrhosis. No focal liver lesion demonstrated. No peripancreatic fluid collection. No ascites. Dictated by Sunday Rich MD @ 12/11/2016 12:34:21 PM Dictated by: Sunday Rich MD @ 12/11/2016 12:34:39 (Electronic Signature) Report Signed by Proxy. [facility]
[2016-12-11 16:52] LABS: CHLORIDE,CL 103 mmol/L (98-110); SODIUM,NA 130 mmol/L (136-146)
[2016-12-11] MEDS ORDERED: cefTRIAXone 1 GM in Premix Bag 1 BAG IV SCH (19:30)
[2016-12-11] MEDS: Temazepam 15 MG Cap PO PRN (20:52)
[2016-12-11] MEDS: Lactulose Soln 10 GM/15 ML 15 ML UD Cup PO SCH (20:52)
[2016-12-11] MEDS: Insulin Glargine,Human Rec. Analog 100 Units/ML 3 ML Pen SUBCUT SCH (21:02)
[2016-12-11] MEDS: cefTRIAXone 1 GM in Premix Bag 1 BAG IV SCH (23:06)
[2016-12-12] MEDS: oxyCODONE 5 MG Tab PO SCH ×4 (04:41→22:34)
[2016-12-12] MEDS: CREON PO SCH ×6 (05:00→20:10)
[2016-12-12 06:31] LABS: CHLORIDE,CL 107 mmol/L (98-110); SODIUM,NA 131 mmol/L (136-146)
[2016-12-12] MEDS: Sodium Chloride 0.9% 1,000 ML IV SCH ×2 (07:47→15:21)
[2016-12-12] MEDS: Citalopram 20 MG Tab PO SCH (09:27)
[2016-12-12] MEDS: Lactulose Soln 10 GM/15 ML 15 ML UD Cup PO SCH ×2 (09:27→20:10)
[2016-12-12] MEDS: Pantoprazole 40 MG in Sodium Chloride 0.9% 10 ML IVPUSH SCH (09:27)
--- NOTE | 2016-12-12 15:32 | PCM.PN ---
- General Info Admission Dx/Problem (Free Text): metabolic encephalopathy Subjective Update: PAtient complains of burning abdominal pain. Patient still confused. - Review of Systems General: Reports: Weakness, Fatigue HEENT: Reports: no symptoms Pulmonary: Reports: no symptoms Cardiovascular: Reports: No Symptoms Gastrointestinal: Reports: Abdominal pain, Nausea Genitourinary: Reports: no symptoms Musculoskeletal: Reports: no symptoms Skin: Reports: no symptoms Neurological: Reports: Confusion Psychiatric: Reports: no symptoms - Patient Data Vitals - most recent: Last Vital Signs Temp 36.4 C 12/12/16 12:00 Pulse 74 12/12/16 12:00 Resp 16 12/12/16 12:00 BP 99/54 L 12/12/16 12:00 Pulse Ox 99 12/12/16 12:00 Weight - most recent: 57.4 kg Med Orders - Current: Current Medications Citalopram Hydrobromide (Celexa) 20 mg PO DAILY [facility] Last Admin: 12/12/16 09:27 Dose: 20 mg Fentanyl (Duragesic) 75 mcg TRDERM Q72H [facility] Last Admin: 12/11/16 06:01 Dose: 75 mcg Hydromorphone HCl (Dilaudid) 0.5 mg IVPUSH Q2H PRN PRN Reason: Pain (severe 7-10) Last Admin: 12/11/16 11:12 Dose: 0.5 mg Sodium Chloride (Normal Saline) 1,000 mls @ 125 mls/hr IV ASDIRECTED [facility] Last Admin: 12/12/16 15:21 Dose: 125 mls/hr Ceftriaxone Sodium/Dextrose 1 (gm/ Premix) 50 mls @ 100 mls/hr IV Q24H [facility] Last Admin: 12/11/16 23:06 Dose: 100 mls/hr Pantoprazole Sodium 40 mg/ (Sodium Chloride) 10 mls @ 300 mls/hr IVPUSH Q24H [facility] Last Admin: 12/12/16 09:27 Dose: 300 mls/hr Insulin Glargine (Lantus Solostar) 24 units SUBCUT BEDTIME [facility] Last Admin: 12/11/16 21:02 Dose: 24 units Lactulose (Chronulac) 10 gm PO BID [facility] Last Admin: 12/12/16 09:27 Dose: 10 gm Ondansetron HCl (Zofran) 4 mg IVPUSH Q8H PRN PRN Reason: Nausea/Vomiting Oxycodone HCl (Oxycodone) 10 mg PO Q6H [facility] Last Admin: 12/12/16 11:08 Dose: 10 mg Patient's Own MedicationCreon Cr 24k Units 1 each PO 6XDAY [facility] Last Admin: 12/12/16 14:07 Dose: 1 each Temazepam (Restoril) 15 mg PO BEDTIME PRN PRN Reason: Sleep Last Admin: 12/11/16 20:52 Dose: 15 mg Discontinued Medications Lipase/Protease/Amylase (Creon Dr 24,000 Units) 1 cap PO 6XDAY [facility] Last Admin: 12/10/16 22:33 Dose: 1 cap Sodium Chloride (Normal Saline) 1,000 mls @ 125 mls/hr IV STAT [facility] Last Admin: 12/10/16 16:45 Dose: 125 mls/hr Ceftriaxone Sodium/Dextrose 1 (gm/ Premix) 50 mls @ 100 mls/hr IV Q24H [facility] Last Admin: 12/11/16 20:20 Dose: Not Given Lactulose (Chronulac) 10 gm PO BEDTIME [facility] Last Admin: 12/10/16 22:32 Dose: 10 gm Non-Formulary Medication (Lactose [Lactose]) 1 gm MC BEDTIME [facility] Ondansetron HCl (Zofran) 4 mg IVPUSH ONETIME ONE Stop: 12/10/16 16:43 Last Admin: 12/10/16 16:48 Dose: 4 mg Oxycodone HCl (Oxycodone) 5 mg PO ONETIME ONE Stop: 12/10/16 17:57 Last Admin: 12/10/16 18:15 Dose: 5 mg Oxycodone HCl (Oxycodone) 10 mg PO Q6H PRN PRN Reason: Pain Comments:: J-tube in place - Exam Quality Assessment: No: supplemental oxygen General: alert, cooperative, no acute distress HEENT: Pupils equal, Pupils reactive, EOMI Neck: supple, trachea midline Lungs: Clear to auscultation, Normal respiratory effort Cardiovascular: Regular Rate, Regular Rhythm Abdomen: tenderness, distension, abnormal bowel sounds. 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 SNOMED Code(s): 93808452, 945200549 Code(s): R63.3 - FEEDING DIFFICULTIES Status: Chronic Priority: High Current Visit: Yes (4) Chronic pancreatitis SNOMED Code(s): 843529961 Code(s): K86.1 - OTHER CHRONIC PANCREATITIS Status: Acute Priority: High Current Visit: Yes Qualifiers: Pancreatitis type: drug induced Qualified Code(s): K86.1 - Other chronic pancreatitis (5) Pancreatic insufficiency SNOMED Code(s): 50654980 Code(s): K86.89 - OTHER SPECIFIED DISEASES OF PANCREAS Status: Chronic Priority: Medium Current Visit: Yes - Problem List Review Problem List Initiated/Reviewed/Updated: Yes - Plan Plan:: 12/11/16 Assessment: 1. Multisystem Organ Failure 2. Liver Failure 3. Pancreatic Failure 4. Diffuse burning abdominal pain 5. Hepatic encephalopathy, improved 6. Hyponatremia 7. Hypotension 8. UTI Plan: 1. awaiting dietary consult for TPN 2. Abdominal US 3. continue Lactulose, once TPN then we will titrate Lactulose to achieve 2-3 bm /day 4. Continue IV NS 5. repeat BMP in evening 6. allow PO meds 7. continue to hold BP meds 8. start Protonix IV 40 mg daily 9. CBC/CMP/INR/Mg in AM 10. Start Ceftriaxone for UTI and f/u on UC 11. as per orders Dec 10, 2016 The patient has been admitted for observation secondary to her ammonia level. The ammonia level be retested. I've also ordered dietary consult with regards to formulation for her J-tube feeding. The patient does not have any specific evidence of confusion and I suspect that her profound hearing deficit may likely be contributing to the perception of confusion. Regardless the patient will be admitted for electrolyte correction as she was also found to be severely hyponatremic with a sodium of 122. Patient's sodium is likely secondary to her pancreatic insufficiency and hepatic injury. Patient will have pain control with use the oxycodone and hydromorphone. The patient is also on a fentanyl patch. This will be continued. I've also ordered a comprehensive metabolic panel, ammonia level, CBC for the patient in the morning. The patient will also have a PT/INR followed as the patient is likely coagulopathic secondary to her hepatic injury. Patient has been encouraged to ambulate. The patient has exhibited sufficient improvement in her pain is controlled and she has discussed the feeding with the dietitian she likely can be appropriate for discharge later tomorrow. The patient will be evaluated and her treatment plan will be adjusted as conditions and information indicates. Dec 12, 2016:The patient was admitted secondary to hyperammonemia as well as hepatic encephalopathy. The patient has been doing better although she is having stomach pain. The patient had been snacking on solid foods and I suspect this is worrisome for chronic pancreatitis. The patient is currently being fed by G-tube and she is using Peptamen which is appropriate for the patient's pancreatic insufficiency. The patient's family has a supply of this at home. I' ve reinstituted tube feeding with a G-tube for the patient and kept her n.p.o. except for freewater and oral medications. The patient will be continued on her pain medications and these will be adjusted as necessary to help keep her comfortable. The patient has had improvement in her hyponatremia with fluid replacement and this is at 131 mmol per liter. This is been slowly corrected to avoid central pontine issues. This will be continued to be monitored and the patient's treatment plan will be adjusted accordingly. The patient also will have a comprehensive metabolic panel and CBC in the morning. The patient will be retained likely at least until Wednesday until after consultation with dietitian with regards to her GI issues secondary to the Peptamen. I discussed all these issues with the patient's daughter as well.
[2016-12-12] MEDS: Temazepam 15 MG Cap PO PRN (20:10)
[2016-12-12] MEDS: Insulin Glargine,Human Rec. Analog 100 Units/ML 3 ML Pen SUBCUT SCH (20:34)
[2016-12-12] MEDS: cefTRIAXone 1 GM in Premix Bag 1 BAG IV SCH (22:33)
[2016-12-13] MEDS: Sodium Chloride 0.9% 1,000 ML IV SCH ×3 (00:17→16:57)
[2016-12-13] MEDS: CREON PO SCH ×6 (05:29→20:28)
[2016-12-13] MEDS: oxyCODONE 5 MG Tab PO SCH ×4 (05:31→22:04)
[2016-12-13 06:19] LABS: CHLORIDE,CL 108 mmol/L (98-110); SODIUM,NA 134 mmol/L (136-146)
[2016-12-13] MEDS: Lactulose Soln 10 GM/15 ML 15 ML UD Cup PO SCH ×2 (08:16→20:27)
[2016-12-13] MEDS: Citalopram 20 MG Tab PO SCH (08:16)
[2016-12-13] MEDS: Pantoprazole 40 MG in Sodium Chloride 0.9% 10 ML IVPUSH SCH (08:30)
--- NOTE | 2016-12-13 11:27 | PCM.PN ---
- Patient Data Vitals - most recent: Last Vital Signs Temp 36.6 C 12/13/16 08:00 Pulse 84 12/13/16 08:00 Resp 18 12/13/16 08:00 BP 82/49 L 12/13/16 08:00 Pulse Ox 95 12/13/16 08:00 Weight - most recent: 60.9 kg I&O - last 24 hours: Intake & Output 12/12/16 12/13/16 12/13/16 22:59 06:59 14:59 Intake Total 550 1394 Output Total 1100 850 Balance -550 544 Lab Results last 24 hrs: Laboratory Results - last 24 hr 12/12/16 12/13/16 12/13/16 Range/Units 20:22 05:27 05:27 WBC (4.0-11.0) K/uL RBC (4.30-5.90) M/uL Hgb (12.0-16.0) g/dL Hct (36.0-46.0) % MCV (80.0-98.0) fL MCH (27.0-32.0) pg MCHC (31.0-37.0) g/dL RDW Std Deviation (28.0-62.0) fl RDW Coeff of Bert (11.0-15.0) % Plt Count (150-400) K/uL MPV (7.40-12.00) fL Neut % (Auto) (48.0-80.0) % Lymph % (Auto) (16.0-40.0) % [place] % (Auto) (0.0-15.0) % Eos % (Auto) (0.0-7.0) % Baso % (Auto) (0.0-1.5) % Neut # (Auto) (1.4-5.7) K/uL Lymph # (Auto) (0.6-2.4) K/uL [place] # (Auto) (0.0-0.8) K/uL Eos # (Auto) (0.0-0.7) K/uL Baso # (Auto) (0.0-0.1) K/uL Nucleated RBC % /100WBC Nucleated RBCs # K/uL INR 1.17 H (0.86-1.11) Sodium (136-146) mmol/L Potassium (3.5-5.1) mmol/L Chloride (98-110) mmol/L Carbon Dioxide (21-31) mmol/L BUN (6.0-23.0) mg/dL Creatinine (0.6-1.5) mg/dL Est Cr Clr Drug Dosing mL/min Estimated GFR (MDRD) ml/min Glucose (60-110) mg/dL POC Glucose 88 (60-110) mg/dL Calcium (8.8-10.8) mg/dL Phosphorus (2.4-4.7) mg/dL Magnesium (1.5-2.3) mEq/L Total Bilirubin (0.1-1.5) mg/dL AST (5-40) IU/L ALT (8-54) IU/L Alkaline Phosphatase (40-150) Total Protein (6.0-8.0) g/dL Albumin (3.5-5.0) g/dL Globulin (2.0-3.5) g/dL Albumin/Globulin Ratio (1.3-2.8) Triglycerides 62 (10-190) mg/dL Cholesterol 124 L (131-240) mg/dL LDL Cholesterol, Calc 91 (60-180) mg/dL VLDL Cholesterol 12 (5-55) mg/dL HDL Cholesterol 21 L (40-80) mg/dL Cholesterol/HDL Ratio 5.9 (3.3-6.0) 12/13/16 12/13/16 Range/Units 05:27 05:27 WBC 7.43 (4.0-11.0) K/uL RBC 3.52 L (4.30-5.90) M/uL Hgb 10.1 L (12.0-16.0) g/dL Hct 31.1 L (36.0-46.0) % MCV 88.4 (80.0-98.0) fL MCH 28.7 (27.0-32.0) pg MCHC 32.5 (31.0-37.0) g/dL RDW Std Deviation 48.3 (28.0-62.0) fl RDW Coeff of Bert 15 (11.0-15.0) % Plt Count 246 (150-400) K/uL MPV 10.50 (7.40-12.00) fL Neut % (Auto) 64.9 (48.0-80.0) % Lymph % (Auto) 17.1 (16.0-40.0) % [place] % (Auto) 15.2 H (0.0-15.0) % Eos % (Auto) 2.7 (0.0-7.0) % Baso % (Auto) 0.1 (0.0-1.5) % Neut # (Auto) 4.8 (1.4-5.7) K/uL Lymph # (Auto) 1.3 (0.6-2.4) K/uL [place] # (Auto) 1.1 H (0.0-0.8) K/uL Eos # (Auto) 0.2 (0.0-0.7) K/uL Baso # (Auto) 0.0 (0.0-0.1) K/uL Nucleated RBC % 0.0 /100WBC Nucleated RBCs # 0 K/uL INR (0.86-1.11) Sodium 134 L (136-146) mmol/L Potassium 3.8 (3.5-5.1) mmol/L Chloride 108 (98-110) mmol/L Carbon Dioxide 20 L (21-31) mmol/L BUN 4 L (6.0-23.0) mg/dL Creatinine 0.7 (0.6-1.5) mg/dL Est Cr Clr Drug Dosing 75.38 mL/min Estimated GFR (MDRD) > 60.0 ml/min Glucose 111 H (60-110) mg/dL POC Glucose (60-110) mg/dL Calcium 8.2 L (8.8-10.8) mg/dL Phosphorus 3.1 (2.4-4.7) mg/dL Magnesium 1.1 L (1.5-2.3) mEq/L Total Bilirubin 0.4 (0.1-1.5) mg/dL AST 16 (5-40) IU/L ALT 9 (8-54) IU/L Alkaline Phosphatase 72 (40-150) Total Protein 5.7 L (6.0-8.0) g/dL Albumin 2.7 L (3.5-5.0) g/dL Globulin 3.0 (2.0-3.5) g/dL Albumin/Globulin Ratio 0.9 L (1.3-2.8) Triglycerides (10-190) mg/dL Cholesterol (131-240) mg/dL LDL Cholesterol, Calc (60-180) mg/dL VLDL Cholesterol (5-55) mg/dL HDL Cholesterol (40-80) mg/dL Cholesterol/HDL Ratio (3.3-6.0) Med Orders - Current: Current Medications Citalopram Hydrobromide (Celexa) 20 mg PO DAILY [facility] Last Admin: 12/13/16 08:16 Dose: 20 mg Fentanyl (Duragesic) 75 mcg TRDERM Q72H [facility] Last Admin: 12/11/16 06:01 Dose: 75 mcg Hydromorphone HCl (Dilaudid) 0.5 mg IVPUSH Q2H PRN PRN Reason: Pain (severe 7-10) Last Admin: 12/11/16 11:12 Dose: 0.5 mg Sodium Chloride (Normal Saline) 1,000 mls @ 125 mls/hr IV ASDIRECTED [facility] Last Admin: 12/13/16 08:15 Dose: 125 mls/hr Ceftriaxone Sodium/Dextrose 1 (gm/ Premix) 50 mls @ 100 mls/hr IV Q24H [facility] Last Admin: 12/12/16 22:33 Dose: 100 mls/hr Pantoprazole Sodium 40 mg/ (Sodium Chloride) 10 mls @ 300 mls/hr IVPUSH Q24H [facility] Last Admin: 12/13/16 08:30 Dose: 300 mls/hr Insulin Glargine (Lantus Solostar) 24 units SUBCUT BEDTIME [facility] Last Admin: 12/12/16 20:34 Dose: 24 units Lactulose (Chronulac) 10 gm PO BID [facility] Last Admin: 12/13/16 08:16 Dose: 10 gm Ondansetron HCl (Zofran) 4 mg IVPUSH Q8H PRN PRN Reason: Nausea/Vomiting Oxycodone HCl (Oxycodone) 10 mg PO Q6H [facility] Last Admin: 12/13/16 11:01 Dose: 10 mg Patient's Own MedicationCreon Cr 24k Units 1 each PO 6XDAY [facility] Last Admin: 12/13/16 11:01 Dose: 1 each Temazepam (Restoril) 15 mg PO BEDTIME PRN PRN Reason: Sleep Last Admin: 12/12/16 20:10 Dose: 15 mg Discontinued Medications Lipase/Protease/Amylase (Creon Dr 24,000 Units) 1 cap PO 6XDAY [facility] Last Admin: 12/10/16 22:33 Dose: 1 cap Sodium Chloride (Normal Saline) 1,000 mls @ 125 mls/hr IV STAT [facility] Last Admin: 12/10/16 16:45 Dose: 125 mls/hr Ceftriaxone Sodium/Dextrose 1 (gm/ Premix) 50 mls @ 100 mls/hr IV Q24H [facility] Last Admin: 12/11/16 20:20 Dose: Not Given Lactulose (Chronulac) 10 gm PO BEDTIME [facility] Last Admin: 12/10/16 22:32 Dose: 10 gm Non-Formulary Medication (Lactose [Lactose]) 1 gm MC BEDTIME [facility] Ondansetron HCl (Zofran) 4 mg IVPUSH ONETIME ONE Stop: 12/10/16 16:43 Last Admin: 12/10/16 16:48 Dose: 4 mg Oxycodone HCl (Oxycodone) 5 mg PO ONETIME ONE Stop: 12/10/16 17:57 Last Admin: 12/10/16 18:15 Dose: 5 mg Oxycodone HCl (Oxycodone) 10 mg PO Q6H PRN PRN Reason: Pain - Problem List & Annotations (1) Hyponatremia syndrome SNOMED Code(s): 2610015 Code(s): E87.1 - HYPO-OSMOLALITY AND HYPONATREMIA Status: Acute Priority : High Current Visit: Yes (2) 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 SNOMED Code(s): 97848269, 345681171 Code(s): R63.3 - FEEDING DIFFICULTIES Status: Chronic Priority: High Current Visit: Yes (3) Chronic pancreatitis SNOMED Code(s): 242266460 Code(s): K86.1 - OTHER CHRONIC PANCREATITIS Status: Acute Priority: High Current Visit: Yes Qualifiers: Pancreatitis type: drug induced Qualified Code(s): K86.1 - Other chronic pancreatitis (4) Pancreatic insufficiency SNOMED Code(s): 24674444 Code(s): K86.89 - OTHER SPECIFIED DISEASES OF PANCREAS Status: Chronic Priority: Medium Current Visit: Yes - Problem List Review Problem List Initiated/Reviewed/Updated: Yes - My Orders Last 24 Hours: My Active Orders 12/12/16 18:11 Communication Order [RC] ROUTINE 12/13/16 05:27 PREALBUMIN [REF] DAILY 12/14/16 05:11 LACTATE DEHYDROGENASE,LDH [CHEM] AM - Plan Plan:: 12/11/16 Assessment: 1. Multisystem Organ Failure 2. Liver Failure 3. Pancreatic Failure 4. Diffuse burning abdominal pain 5. Hepatic encephalopathy, improved 6. Hyponatremia 7. Hypotension 8. UTI Plan: 1. awaiting dietary consult for TPN 2. Abdominal US 3. continue Lactulose, once TPN then we will titrate Lactulose to achieve 2-3 bm /day 4. Continue IV NS 5. repeat BMP in evening 6. allow PO meds 7. continue to hold BP meds 8. start Protonix IV 40 mg daily 9. CBC/CMP/INR/Mg in AM 10. Start Ceftriaxone for UTI and f/u on UC 11. as per orders Dec 10, 2016 The patient has been admitted for observation secondary to her ammonia level. The ammonia level be retested. I've also ordered dietary consult with regards to formulation for her J-tube feeding. The patient does not have any specific evidence of confusion and I suspect that her profound hearing deficit may likely be contributing to the perception of confusion. Regardless the patient will be admitted for electrolyte correction as she was also found to be severely hyponatremic with a sodium of 122. Patient's sodium is likely secondary to her pancreatic insufficiency and hepatic injury. Patient will have pain control with use the oxycodone and hydromorphone. The patient is also on a fentanyl patch. This will be continued. I've also ordered a comprehensive metabolic panel, ammonia level, CBC for the patient in the morning. The patient will also have a PT/INR followed as the patient is likely coagulopathic secondary to her hepatic injury. Patient has been encouraged to ambulate. The patient has exhibited sufficient improvement in her pain is controlled and she has discussed the feeding with the dietitian she likely can be appropriate for discharge later tomorrow. The patient will be evaluated and her treatment plan will be adjusted as conditions and information indicates. Dec 12, 2016:The patient was admitted secondary to hyperammonemia as well as hepatic encephalopathy. The patient has been doing better although she is having stomach pain. The patient had been snacking on solid foods and I suspect this is worrisome for chronic pancreatitis. The patient is currently being fed by G-tube and she is using Peptamen which is appropriate for the patient's pancreatic insufficiency. The patient's family has a supply of this at home. I' ve reinstituted tube feeding with a G-tube for the patient and kept her n.p.o. except for freewater and oral medications. The patient will be continued on her pain medications and these will be adjusted as necessary to help keep her comfortable. The patient has had improvement in her hyponatremia with fluid replacement and this is at 131 mmol per liter. This is been slowly corrected to avoid central pontine issues. This will be continued to be monitored and the patient's treatment plan will be adjusted accordingly. The patient also will have a comprehensive metabolic panel and CBC in the morning. The patient will be retained likely at least until Wednesday until after consultation with dietitian with regards to her GI issues secondary to the Peptamen. I discussed all these issues with the patient's daughter as well. Dec 13, 2016: The patient is a 51-year-old lady who has hepatic encephalopathy secondary to accidental ingestion of large amounts of Tylenol PM. The patient had presented to the emergency department on Dec 10, 2016 after discharge from prolonged hospitalization and rehabilitation at [facility]. The patient is noted to have hepatic as well as pancreatic injury. The patient is currently being treated for chronic pancreatitis and she has a G. tube in place. She has been fed Peptamen which has caused that time problems with bloating and increasing abdominal pain. Earlier, the patient had been snacking which had worsened her abdominal pain. Yesterday the patient was kept n.p.o. secondary to the chronic pancreatitis. Also upon admission the patient had been severely hyponatremic with a sodium of 122 mmol per liter and her sodium is been slowly corrected. Today the patient's sodium is up to 134 mmol per liter. Also because of hepatic injury the patient's PT/INR has been monitored and will continue to be treated. The patient's INR today is 1.17 which is down from 1.22. 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 The patient is pending dietitian evaluation for J-tube feeding and should be appropriate for discharge home once her overall issues have resolved. The patient does have pain and this will be controlled with the use of the narcotics that she is currently taking. The patient also has been using fentanyl at 75 mcg per hour. I have ordered a comprehensive metabolic panel, CBC , ammonia level and urinalysis for the morning. Patient should also have a PT/ INR completed. The patient also had been treated with ceftriaxone for UTI and the should be continued until testing shows resolution of the UTI. This is likely contamination. The patient will also need followup upon discharge with primary care physician.
[2016-12-13] MEDS: HYDROmorphone 2 MG/ML Syringe IVPUSH PRN ×2 (12:20→14:26)
[2016-12-13] MEDS ORDERED: Magnesium Sulfate/Water 2 GM in Premix Bag 1 BAG IV ONE (15:05)
[2016-12-13] MEDS: Temazepam 15 MG Cap PO PRN (20:27)
[2016-12-13] MEDS: Insulin Glargine,Human Rec. Analog 100 Units/ML 3 ML Pen SUBCUT SCH (20:44)
[2016-12-13] MEDS: cefTRIAXone 1 GM in Premix Bag 1 BAG IV SCH (22:00)
[2016-12-14] MEDS: Sodium Chloride 0.9% 1,000 ML IV SCH ×3 (01:10→17:51)
[2016-12-14] MEDS: Ondansetron 4 MG/2 ML SDV IVPUSH PRN ×2 (05:32→15:29)
[2016-12-14] MEDS: CREON PO SCH ×6 (05:32→20:37)
[2016-12-14] MEDS: fentaNYL 75 MCG/HR Transdermal Patch TRDERM SCH (05:32)
[2016-12-14] MEDS: oxyCODONE 5 MG Tab PO SCH (05:33)
[2016-12-14 05:40] LABS: CHLORIDE,CL 110 mmol/L (98-110); SODIUM,NA 133 mmol/L (136-146)
[2016-12-14] MEDS: Pantoprazole 40 MG in Sodium Chloride 0.9% 10 ML IVPUSH SCH (08:31)
[2016-12-14] MEDS: Citalopram 20 MG Tab PO SCH (10:07)
[2016-12-14] MEDS: Lactulose Soln 10 GM/15 ML 15 ML UD Cup PO SCH ×2 (10:07→20:39)
--- NOTE | 2016-12-14 10:15 | PCM.PN ---
- General Info Date of Service: 12/14/16 Admission Dx/Problem (Free Text): I was present with the resident during history and examination. I discussed the case with the resident and agree with the findings and plan as documented in the residents note. Subjective Update: Nausea and vomiting. Several loose stools due to lactulose generalized ramos dtr with her - Patient Data Vitals - most recent: Last Vital Signs Temp 36.4 C 12/14/16 08:00 Pulse 81 12/14/16 08:00 Resp 16 12/14/16 08:00 BP 113/70 12/14/16 08:00 Pulse Ox 97 12/14/16 08:00 Weight - most recent: 61.3 kg I&O - last 24 hours: Intake & Output 12/13/16 12/14/16 12/14/16 22:59 06:59 14:59 Intake Total 1606 1524 Output Total 850 1000 Balance 756 524 Lab Results last 24 hrs: Laboratory Results - last 24 hr 12/13/16 12/14/16 12/14/16 Range/Units 20:32 05:11 05:11 WBC 8.44 (4.0-11.0) K/uL RBC 3.68 L (4.30-5.90) M/uL Hgb 10.7 L (12.0-16.0) g/dL Hct 32.3 L (36.0-46.0) % MCV 87.8 (80.0-98.0) fL MCH 29.1 (27.0-32.0) pg MCHC 33.1 (31.0-37.0) g/dL RDW Std Deviation 48.7 (28.0-62.0) fl RDW Coeff of Bert 15 (11.0-15.0) % Plt Count 265 (150-400) K/uL MPV 10.40 (7.40-12.00) fL Neut % (Auto) 68.7 (48.0-80.0) % Lymph % (Auto) 14.0 L (16.0-40.0) % [place] % (Auto) 14.7 (0.0-15.0) % Eos % (Auto) 2.4 (0.0-7.0) % Baso % (Auto) 0.2 (0.0-1.5) % Neut # (Auto) 5.8 H (1.4-5.7) K/uL Lymph # (Auto) 1.2 (0.6-2.4) K/uL [place] # (Auto) 1.2 H (0.0-0.8) K/uL Eos # (Auto) 0.2 (0.0-0.7) K/uL Baso # (Auto) 0.0 (0.0-0.1) K/uL Nucleated RBC % 0.0 /100WBC Nucleated RBCs # 0 K/uL Sodium 133 L (136-146) mmol/L Potassium 3.6 (3.5-5.1) mmol/L Chloride 110 (98-110) mmol/L Carbon Dioxide 17 L (21-31) mmol/L BUN 5 L (6.0-23.0) mg/dL Creatinine 0.6 (0.6-1.5) mg/dL Est Cr Clr Drug Dosing 87.95 mL/min Estimated GFR (MDRD) > 60.0 ml/min Glucose 139 H (60-110) mg/dL POC Glucose 53 L (60-110) mg/dL Calcium 8.2 L (8.8-10.8) mg/dL Total Bilirubin 0.4 (0.1-1.5) mg/dL AST 20 (5-40) IU/L ALT 11 (8-54) IU/L Alkaline Phosphatase 80 (40-150) Ammonia (14-68) UG/DL Lactate Dehydrogenase 134 (125-220) IU/L Total Protein 5.7 L (6.0-8.0) g/dL Albumin 2.6 L (3.5-5.0) g/dL Globulin 3.1 (2.0-3.5) g/dL Albumin/Globulin Ratio 0.8 L (1.3-2.8) 12/14/16 12/14/16 Range/Units 05:11 05:55 WBC (4.0-11.0) K/uL RBC (4.30-5.90) M/uL Hgb (12.0-16.0) g/dL Hct (36.0-46.0) % MCV (80.0-98.0) fL MCH (27.0-32.0) pg MCHC (31.0-37.0) g/dL RDW Std Deviation (28.0-62.0) fl RDW Coeff of Bert (11.0-15.0) % Plt Count (150-400) K/uL MPV (7.40-12.00) fL Neut % (Auto) (48.0-80.0) % Lymph % (Auto) (16.0-40.0) % [place] % (Auto) (0.0-15.0) % Eos % (Auto) (0.0-7.0) % Baso % (Auto) (0.0-1.5) % Neut # (Auto) (1.4-5.7) K/uL Lymph # (Auto) (0.6-2.4) K/uL [place] # (Auto) (0.0-0.8) K/uL Eos # (Auto) (0.0-0.7) K/uL Baso # (Auto) (0.0-0.1) K/uL Nucleated RBC % /100WBC Nucleated RBCs # K/uL Sodium (136-146) mmol/L Potassium (3.5-5.1) mmol/L Chloride (98-110) mmol/L Carbon Dioxide (21-31) mmol/L BUN (6.0-23.0) mg/dL Creatinine (0.6-1.5) mg/dL Est Cr Clr Drug Dosing mL/min Estimated GFR (MDRD) ml/min Glucose (60-110) mg/dL POC Glucose 149 H (60-110) mg/dL Calcium (8.8-10.8) mg/dL Total Bilirubin (0.1-1.5) mg/dL AST (5-40) IU/L ALT (8-54) IU/L Alkaline Phosphatase (40-150) Ammonia 75 H (14-68) UG/DL Lactate Dehydrogenase (125-220) IU/L Total Protein (6.0-8.0) g/dL Albumin (3.5-5.0) g/dL Globulin (2.0-3.5) g/dL Albumin/Globulin Ratio (1.3-2.8) Med Orders - Current: Current Medications Fentanyl (Duragesic) 75 mcg TRDERM Q72H [facility] Last Admin: 12/14/16 05:32 Dose: 75 mcg Hydromorphone HCl (Dilaudid) 0.5 mg IVPUSH Q2H PRN PRN Reason: Pain (severe 7-10) Last Admin: 12/13/16 14:26 Dose: 0.5 mg Sodium Chloride (Normal Saline) 1,000 mls @ 125 mls/hr IV ASDIRECTED [facility] Last Admin: 12/14/16 08:38 Dose: 125 mls/hr Insulin Glargine (Lantus Solostar) 18 units SUBCUT BEDTIME [facility] Lactulose (Chronulac) 10 gm PO BID [facility] Last Admin: 12/13/16 20:27 Dose: 10 gm Ondansetron HCl (Zofran) 4 mg IVPUSH Q8H PRN PRN Reason: Nausea/Vomiting Last Admin: 12/14/16 05:32 Dose: 4 mg Oxycodone HCl (Oxycodone) 10 mg PO Q6H [facility] Last Admin: 12/14/16 05:33 Dose: 10 mg Patient's Own MedicationCreon Cr 24k Units 1 each PO 6XDAY [facility] Last Admin: 12/14/16 05:32 Dose: 1 each Temazepam (Restoril) 15 mg PO BEDTIME PRN PRN Reason: Sleep Last Admin: 12/13/16 20:27 Dose: 15 mg Discontinued Medications Lipase/Protease/Amylase (Creon Dr 24,000 Units) 1 cap PO 6XDAY [facility] Last Admin: 12/10/16 22:33 Dose: 1 cap Citalopram Hydrobromide (Celexa) 20 mg PO DAILY [facility] Last Admin: 12/13/16 08:16 Dose: 20 mg Sodium Chloride (Normal Saline) 1,000 mls @ 125 mls/hr IV STAT [facility] Last Admin: 12/10/16 16:45 Dose: 125 mls/hr Ceftriaxone Sodium/Dextrose 1 (gm/ Premix) 50 mls @ 100 mls/hr IV Q24H [facility] Last Admin: 12/13/16 22:00 Dose: 100 mls/hr Pantoprazole Sodium 40 mg/ (Sodium Chloride) 10 mls @ 300 mls/hr IVPUSH Q24H [facility] Last Admin: 12/14/16 08:31 Dose: 300 mls/hr Ceftriaxone Sodium/Dextrose 1 (gm/ Premix) 50 mls @ 100 mls/hr IV Q24H [facility] Last Admin: 12/11/16 20:20 Dose: Not Given Magnesium Sulfate 2 gm/ Premix 50 mls @ 50 mls/hr IV ONETIME ONE Stop: 12/13/16 16:04 Last Admin: 12/13/16 15:17 Dose: 50 mls/hr Insulin Glargine (Lantus Solostar) 24 units SUBCUT BEDTIME [facility] Last Admin: 12/13/16 20:44 Dose: Not Given Lactulose (Chronulac) 10 gm PO BEDTIME [facility] Last Admin: 12/10/16 22:32 Dose: 10 gm Non-Formulary Medication (Lactose [Lactose]) 1 gm MC BEDTIME [facility] Ondansetron HCl (Zofran) 4 mg IVPUSH ONETIME ONE Stop: 12/10/16 16:43 Last Admin: 12/10/16 16:48 Dose: 4 mg Oxycodone HCl (Oxycodone) 5 mg PO ONETIME ONE Stop: 12/10/16 17:57 Last Admin: 12/10/16 18:15 Dose: 5 mg Oxycodone HCl (Oxycodone) 10 mg PO Q6H PRN PRN Reason: Pain - Exam General: sedated (slightly) Neck: supple Lungs: Clear to auscultation Cardiovascular: Regular Rate, Regular Rhythm Abdomen: bowel sounds present, soft, tenderness. No: rebound, guarding Extremities: no edema Skin: warm, dry Neurological: no new focal deficit - Problem List & Annotations (1) Debility SNOMED Code(s): 08660786 Code(s): R53.81 - OTHER MALAISE Status: Acute Current Visit: Yes - Problem List Review Problem List Initiated/Reviewed/Updated: Yes - My Orders Last 24 Hours: My Active Orders 12/13/16 21:06 Communication Order [RC] ROUTINE 12/14/16 21:00 Insulin Glarg,Human.Rec.Analog [LantUS Solostar] 18 units SUBCUT BEDTIME - Plan Plan:: 12/11/16 Assessment: 1. Multisystem Organ Failure 2. Liver Failure 3. Pancreatic Failure 4. Diffuse burning abdominal pain 5. Hepatic encephalopathy, improved 6. Hyponatremia 7. Hypotension 8. UTI Plan: 1. awaiting dietary consult for TPN 2. Abdominal US 3. continue Lactulose, once TPN then we will titrate Lactulose to achieve 2-3 bm /day 4. Continue IV NS 5. repeat BMP in evening 6. allow PO meds 7. continue to hold BP meds 8. start Protonix IV 40 mg daily 9. CBC/CMP/INR/Mg in AM 10. Start Ceftriaxone for UTI and f/u on UC 11. as per orders Dec 10, 2016 The patient has been admitted for observation secondary to her ammonia level. The ammonia level be retested. I've also ordered dietary consult with regards to formulation for her J-tube feeding. The patient does not have any specific evidence of confusion and I suspect that her profound hearing deficit may likely be contributing to the perception of confusion. Regardless the patient will be admitted for electrolyte correction as she was also found to be severely hyponatremic with a sodium of 122. Patient's sodium is likely secondary to her pancreatic insufficiency and hepatic injury. Patient will have pain control with use the oxycodone and hydromorphone. The patient is also on a fentanyl patch. This will be continued. I've also ordered a comprehensive metabolic panel, ammonia level, CBC for the patient in the morning. The patient will also have a PT/INR followed as the patient is likely coagulopathic secondary to her hepatic injury. Patient has been encouraged to ambulate. The patient has exhibited sufficient improvement in her pain is controlled and she has discussed the feeding with the dietitian she likely can be appropriate for discharge later tomorrow. The patient will be evaluated and her treatment plan will be adjusted as conditions and information indicates. Dec 12, 2016:The patient was admitted secondary to hyperammonemia as well as hepatic encephalopathy. The patient has been doing better although she is having stomach pain. The patient had been snacking on solid foods and I suspect this is worrisome for chronic pancreatitis. The patient is currently being fed by G-tube and she is using Peptamen which is appropriate for the patient's pancreatic insufficiency. The patient's family has a supply of this at home. I' ve reinstituted tube feeding with a G-tube for the patient and kept her n.p.o. except for freewater and oral medications. The patient will be continued on her pain medications and these will be adjusted as necessary to help keep her comfortable. The patient has had improvement in her hyponatremia with fluid replacement and this is at 131 mmol per liter. This is been slowly corrected to avoid central pontine issues. This will be continued to be monitored and the patient's treatment plan will be adjusted accordingly. The patient also will have a comprehensive metabolic panel and CBC in the morning. The patient will be retained likely at least until Wednesday until after consultation with dietitian with regards to her GI issues secondary to the Peptamen. I discussed all these issues with the patient's daughter as well. Dec 13, 2016: The patient is a 51-year-old lady who has hepatic encephalopathy secondary to accidental ingestion of large amounts of Tylenol PM. The patient had presented to the emergency department on Dec 10, 2016 after discharge from prolonged hospitalization and rehabilitation at [facility]. The patient is noted to have hepatic as well as pancreatic injury. The patient is currently being treated for chronic pancreatitis and she has a G. tube in place. She has been fed Peptamen which has caused that time problems with bloating and increasing abdominal pain. Earlier, the patient had been snacking which had worsened her abdominal pain. Yesterday the patient was kept n.p.o. secondary to the chronic pancreatitis. Also upon admission the patient had been severely hyponatremic with a sodium of 122 mmol per liter and her sodium is been slowly corrected. Today the patient's sodium is up to 134 mmol per liter. Also because of hepatic injury the patient's PT/INR has been monitored and will continue to be treated. The patient's INR today is 1.17 which is down from 1.22. 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 The patient is pending dietitian evaluation for J-tube feeding and should be appropriate for discharge home once her overall issues have resolved. The patient does have pain and this will be controlled with the use of the narcotics that she is currently taking. The patient also has been using fentanyl at 75 mcg per hour. I have ordered a comprehensive metabolic panel, CBC , ammonia level and urinalysis for the morning. Patient should also have a PT/ INR completed. The patient also had been treated with ceftriaxone for UTI and the should be continued until testing shows resolution of the UTI. This is likely contamination. The patient will also need followup upon discharge with primary care physician. Dec 14, 2016: N/V worse and pain no better. stop protonix, celexa, and ceftriaxone. F/U urine culture (Sent?)\ CM/SW consult: needs HHC etc. Add phenergan prn. cont zofran prn local care for ramos's Will need J tube eventually This NJT has been in since September) PT--needs to get OOB!!! Chronic pain--need to reduce pain meds if possible. SCD's I wonder if her AMS is more from narcs and low Na as it appears at least by lab work that her liver has made a sig recovery (bili less than 1, etc.) 35 minute visit with patient and her dtr. d/w RN and METALLURGICAL TECHNICIAN.
[2016-12-14] MEDS ORDERED: Promethazine 12.5 MG Supp RECTAL PRN (10:37)
[2016-12-14] MEDS ORDERED: Prochlorperazine 10 MG in Sodium Chloride 0.9% 50 ML IV PRN (10:38)
[2016-12-14] MEDS: oxyCODONE 5 MG Tab PO PRN (11:45)
[2016-12-14] MEDS ORDERED: Magnesium Sulfate/Water 2 GM in Premix Bag 1 BAG IV ONE (12:06)
[2016-12-14] MEDS: HYDROmorphone 2 MG/ML Syringe IVPUSH PRN (15:28)
--- NOTE | 2016-12-14 16:10 | CR ---
EXAMINATION: Abdomen HISTORY: Tube placement COMPARISON: None TECHNIQUE: AP views of the abdomen FINDINGS: There is a feeding tube noted with the tip projecting within the proximal jejunum. Stent material projects near the gastroesophageal junction. There is a nonobstructive bowel gas pattern. N o abnormal calcifications project over the kidneys. The lung bases are clear. The visualized osseous structures appear normal. IMPRESSION: 1. Feeding tube, with tip projecting within the proximal jejunum.
[2016-12-14] MEDS ORDERED: Prochlorperazine 10 MG/2 ML SDV IV PRN (16:15)
[2016-12-14] MEDS ORDERED: Insulin Glargine,Human Rec. Analog 100 Units/ML 3 ML Pen SUBCUT SCH (21:00)
[2016-12-15] MEDS: Sodium Chloride 0.9% 1,000 ML IV SCH ×2 (02:12→10:10)
[2016-12-15] MEDS: CREON PO SCH ×4 (06:13→15:33)
[2016-12-15] MEDS: oxyCODONE 5 MG Tab PO PRN ×2 (06:18→12:52)
[2016-12-15] MEDS: Ondansetron 4 MG/2 ML SDV IVPUSH PRN (07:28)
[2016-12-15] MEDS: HYDROmorphone 2 MG/ML Syringe IVPUSH PRN (08:43)
[2016-12-15] MEDS: Lactulose Soln 10 GM/15 ML 15 ML UD Cup PO SCH (08:45)
[2016-12-15] MEDS ORDERED: Magnesium Sulfate/Water 4 GM in Premix Bag 1 BAG IV ONE (09:31)
[2016-12-15 10:03] LABS: CHLORIDE,CL 111 mmol/L (98-110); SODIUM,NA 136 mmol/L (136-146)
[2016-12-15 11:26] VITALS: BP 108/68
--- NOTE | 2016-12-15 11:28 | PCM.DCSUM1 ---
Discharge Summary - Hospital Course Free Text/Narrative:: Admitted with AMS due to low Na. See HPI. I started seeing her yesterday. She is clear and oriented. Back to baseline per dtr. She has ongoing nausea and diffuse abdominal pain which is not new. No other c/o except fatigue and over all weakness. She has maximized her hospital stay and can be discharged home with [facility]. She is homebound as she has pain that is limiting her ability to ambulate more than household distance. She has a need for skilled service as she needs an RN to help monitor tube feeds and a PT to help with significant debility. She will be followed by Dr. Bobby Benz, who admitted her and has agreed to be her PCP. 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 SNOMED Code(s): 19844238, 650403827 ICD Code: R63.3 - FEEDING DIFFICULTIES Status: Chronic Priority: High Current Visit: Yes (4) Pancreatic insufficiency SNOMED Code(s): 88172436 ICD Code: K86.89 - OTHER SPECIFIED DISEASES OF PANCREAS Status: Chronic Priority: Medium Current Visit: Yes - Patient Summary/Data Consults: Consultations 12/14/16 12:00 Consult to Physical Therapy [PT Evaluation and Treatment] [CONS] Routine - Patient Instructions Diet: Diabetic Diet (she can pleasure eat during the day as her pain and n/v allows but will cont tf's overnight) Feeding Instructions: TUBE FEEDS as directed qhs - Discharge Plan Prescriptions/Med Rec: Ondansetron [Zofran ODT] 4 mg PO Q8H PRN #30 tab.dis PRN Reason: Nausea/Vomiting Promethazine [Phenergan] 25 mg PO Q6H PRN #30 tablet PRN Reason: Nausea/Vomiting Promethazine [Phenadoz] 12.5 mg RECTAL Q6H PRN #8 supp PRN Reason: Nausea/Vomiting Spironolactone [Aldactone] 50 mg PO DAILY #30 tablet fentaNYL [Duragesic] 75 mcg TRDERM Q72H #10 patch oxyCODONE 10 mg PO Q6H PRN #30 tablet PRN Reason: Pain Home Medications: Home Meds Amylase/Lipase/Protease [Deisi GARCIA 24,000 Unit] 1 cap PO 6XDAY 12/10/16 [History] Lactulose 10 gm PO BEDTIME 12/10/16 [History] Magnesium Oxide [Magnesium] 400 mg PO BID 12/10/16 [History] Thiamine [Vitamin B-1] 100 mg PO BEDTIME 12/10/16 [History] Insulin Glargine,Hum.Rec.Anlog [Lantus Solostar] 10 unit SQ BEDTIME #0 [Rx] Ondansetron [Zofran ODT] 4 mg PO Q8H PRN #30 tab.dis 12/15/16 [Rx] Promethazine [Phenadoz] 12.5 mg RECTAL Q6H PRN #8 supp 12/15/16 [Rx] Promethazine [Phenergan] 25 mg PO Q6H PRN #30 tablet 12/15/16 [Rx] Spironolactone [Aldactone] 50 mg PO DAILY #30 tablet 12/15/16 [Rx] fentaNYL [Duragesic] 75 mcg TRDERM Q72H #10 patch 12/15/16 [Rx] oxyCODONE 10 mg PO Q6H PRN #30 tablet 12/15/16 [Rx] Referrals: Bobby Benz DO [Physician] - - Discharge Summary/Plan Comment DC Time >30 min.: Yes Discharge Summary/Plan Comment: See above - General Info Date of Service: 12/15/16 Admission Dx/Problem (Free Text: I was present with the resident during history and examination. I discussed the case with the resident and agree with the findings and plan as documented in the residents note. Subjective Update: Nausea and vomiting. Several loose stools due to lactulose generalized ramos dtr with her - Review of Systems General: Reports: No Symptoms, Other (see other section) - Patient Data Vitals - Most Recent: Last Vital Signs Temp 36.0 C 12/15/16 07:43 Pulse 73 12/15/16 07:43 Resp 16 12/15/16 07:43 BP 95/63 12/15/16 07:43 Pulse Ox 95 12/15/16 07:43 Weight - Most Recent: 62 kg I&O - Last 24 hours: Intake & Output 12/14/16 12/15/16 12/15/16 22:59 06:59 14:59 Intake Total 1200 Output Total 350 Balance 850 Lab Results - Last 24 hrs: Laboratory Results - last 24 hr 12/13/16 12/14/16 12/15/16 Range/Units 05:27 20:06 04:20 Sodium (136-146) mmol/L Potassium (3.5-5.1) mmol/L Chloride (98-110) mmol/L Carbon Dioxide (21-31) mmol/L BUN (6.0-23.0) mg/dL Creatinine (0.6-1.5) mg/dL Est Cr Clr Drug Dosing mL/min Estimated GFR (MDRD) ml/min Glucose (60-110) mg/dL POC Glucose 82 (60-110) mg/dL Calcium (8.8-10.8) mg/dL Magnesium 1.2 L (1.5-2.3) mEq/L Prealbumin 5.5 L (17.0-34.0) mg/dL 12/15/16 Range/Units 04:20 Sodium 136 (136-146) mmol/L Potassium 3.8 (3.5-5.1) mmol/L Chloride 111 H (98-110) mmol/L Carbon Dioxide 19 L (21-31) mmol/L BUN 5 L (6.0-23.0) mg/dL Creatinine 0.6 (0.6-1.5) mg/dL Est Cr Clr Drug Dosing 87.95 mL/min Estimated GFR (MDRD) > 60.0 ml/min Glucose 166 H (60-110) mg/dL POC Glucose (60-110) mg/dL Calcium 7.7 L (8.8-10.8) mg/dL Magnesium (1.5-2.3) mEq/L Prealbumin (17.0-34.0) mg/dL Med Orders - Current: Current Medications Fentanyl (Duragesic) 75 mcg TRDERM Q72H [facility] Last Admin: 12/14/16 05:32 Dose: 75 mcg Hydromorphone HCl (Dilaudid) 0.5 mg IVPUSH Q2H PRN PRN Reason: Pain (severe 7-10) Last Admin: 12/15/16 08:43 Dose: 0.5 mg Sodium Chloride (Normal Saline) 1,000 mls @ 125 mls/hr IV ASDIRECTED [facility] Last Admin: 12/15/16 10:10 Dose: 125 mls/hr Magnesium Sulfate 4 gm/ Premix 100 mls @ 50 mls/hr IV ONETIME ONE Stop: 12/15/16 11:30 Last Admin: 12/15/16 10:15 Dose: 50 mls/hr Insulin Glargine (Lantus Solostar) 18 units SUBCUT BEDTIME [facility] Last Admin: 12/14/16 20:26 Dose: Not Given Lactulose (Chronulac) 10 gm PO BID [facility] Last Admin: 12/15/16 08:45 Dose: 10 gm Ondansetron HCl (Zofran) 4 mg IVPUSH Q8H PRN PRN Reason: Nausea/Vomiting Last Admin: 12/15/16 07:28 Dose: 4 mg Oxycodone HCl (Oxycodone) 10 mg PO Q6H PRN PRN Reason: Abdominal Pain Last Admin: 12/15/16 06:18 Dose: 10 mg Patient's Own MedicationCreon Cr 24k Units 1 each PO 6XDAY [facility] Last Admin: 12/15/16 08:45 Dose: 1 each Prochlorperazine Edisylate (Compazine) 10 mg IV Q6H PRN PRN Reason: NAUSEA Promethazine HCl (Phenadoz) 12.5 mg RECTAL Q4H PRN PRN Reason: Nausea/Vomiting Temazepam (Restoril) 15 mg PO BEDTIME PRN PRN Reason: Sleep Last Admin: 12/13/16 20:27 Dose: 15 mg Discontinued Medications Lipase/Protease/Amylase (Creon Dr 24,000 Units) 1 cap PO 6XDAY [facility] Last Admin: 12/10/16 22:33 Dose: 1 cap Citalopram Hydrobromide (Celexa) 20 mg PO DAILY [facility] Last Admin: 12/14/16 10:07 Dose: Not Given Sodium Chloride (Normal Saline) 1,000 mls @ 125 mls/hr IV STAT [facility] Last Admin: 12/10/16 16:45 Dose: 125 mls/hr Ceftriaxone Sodium/Dextrose 1 (gm/ Premix) 50 mls @ 100 mls/hr IV Q24H [facility] Last Admin: 12/13/16 22:00 Dose: 100 mls/hr Pantoprazole Sodium 40 mg/ (Sodium Chloride) 10 mls @ 300 mls/hr IVPUSH Q24H [facility] Last Admin: 12/14/16 08:31 Dose: 300 mls/hr Ceftriaxone Sodium/Dextrose 1 (gm/ Premix) 50 mls @ 100 mls/hr IV Q24H [facility] Last Admin: 12/11/16 20:20 Dose: Not Given Magnesium Sulfate 2 gm/ Premix 50 mls @ 50 mls/hr IV ONETIME ONE Stop: 12/13/16 16:04 Last Admin: 12/13/16 15:17 Dose: 50 mls/hr Prochlorperazine Edisylate 10 (mg/ Sodium Chloride) 52 mls @ 150 mls/hr IV Q6H PRN PRN Reason: Nausea/Vomiting Last Admin: 12/14/16 11:41 Dose: 150 mls/hr Magnesium Sulfate 2 gm/ Premix 50 mls @ 50 mls/hr IV ONETIME ONE Stop: 12/14/16 13:05 Last Admin: 12/14/16 12:38 Dose: 50 mls/hr Insulin Glargine (Lantus Solostar) 24 units SUBCUT BEDTIME [facility] Last Admin: 12/13/16 20:44 Dose: Not Given Lactulose (Chronulac) 10 gm PO BEDTIME [facility] Last Admin: 12/10/16 22:32 Dose: 10 gm Non-Formulary Medication (Lactose [Lactose]) 1 gm MC BEDTIME [facility] Ondansetron HCl (Zofran) 4 mg IVPUSH ONETIME ONE Stop: 12/10/16 16:43 Last Admin: 12/10/16 16:48 Dose: 4 mg Oxycodone HCl (Oxycodone) 5 mg PO ONETIME ONE Stop: 12/10/16 17:57 Last Admin: 12/10/16 18:15 Dose: 5 mg Oxycodone HCl (Oxycodone) 10 mg PO Q6H PRN PRN Reason: Pain Oxycodone HCl (Oxycodone) 10 mg PO Q6H [facility] Last Admin: 12/14/16 05:33 Dose: 10 mg - Exam General: Reports: alert, oriented HEENT: Reports: Pupils equal, Pupils reactive, EOMI, Mucous membr. moist/pink Neck: Reports: supple Lungs: Reports: Clear to auscultation, Normal respiratory effort Cardiovascular: Reports: Regular Rate, Regular Rhythm Abdomen: Reports: bowel sounds present, soft, tenderness Extremities: Reports: no edema Skin: Reports: warm *Q Meaningful Use (DIS) - VTE *Q VTE Criteria *Q: - Stroke *Q Stroke Criteria *Q: - AMI *Q AMI Criteria *Q:
== END 2016-12-15 15:15 | disposition home health service (06) | DRG 442 ==
LOC: MW.ED 15:26 → EDBD 15:26 → MERGE 17:36 → MW.MS 17:36 → OBSVTOIN 12-12 14:48
PROVIDERS: ADMIT Internal Medicine; ATTEND Internal Medicine
DX: K72.90 Hepatic failure, unspecified without coma (principal); E72.20 Disorder of urea cycle metabolism, unspecified; E87.1 Hypo-osmolality and hyponatremia; K86.1 Other chronic pancreatitis; N39.0 Urinary tract infection, site not specified; D68.9 Coagulation defect, unspecified; R10.9 Unspecified abdominal pain; K86.89 Other specified diseases of pancreas; I95.9 Hypotension, unspecified; R63.3 Feeding difficulties; H90.3 Sensorineural hearing loss, bilateral; R53.81 Other malaise; F41.8 Other specified anxiety disorders; G40.909 Epilepsy, unspecified, not intractable, without status epilepticus; E53.8 Deficiency of other specified B group vitamins; F43.10 Post-traumatic stress disorder, unspecified; Z87.891 Personal history of nicotine dependence; Z79.4 Long term (current) use of insulin; Z93.4 Other artificial openings of gastrointestinal tract status; Z79.899 Other long term (current) drug therapy
CPT/HCPCS: 36415; 71010; 71010-26; 74000; 74000-26; 76700; 76700-26; 80048; 80053; 80061; 80305; 81001; 82140; 82150; 82962; 83615; 83690; 83735; 84100; 84134; 85025; 85610; 87040; 87086; 93005; 96361; 96374; 97161-GP; 97802; 99285; 99285-25; A9270-GY; C9113; J0696; J0780; J1170; J1815-GY; J2405; J3475; J7040; J7050

== ENCOUNTER 2016-12-24 12:14 | Observation (INO) | payer OTHER ==
[2016-12-24] MEDS ORDERED: Sodium Chloride 0.9% 2.5 ML Syringe FLUSH PRN (12:50)
[2016-12-24] MEDS ORDERED: Sodium Chloride 0.9% 10 ML Syringe FLUSH PRN (12:50)
--- NOTE | 2016-12-24 12:56 | EDM.PDOC ---
ED HPI GENERAL MEDICAL PROBLEM - General Chief Complaint: General Stated Complaint: UNK Time Seen by Provider: 12/24/16 12:37 - History of Present Illness INITIAL COMMENTS - FREE TEXT/NARRATIVE: HISTORY AND PHYSICAL: History of present illness: The patient is a 51-year-old female with a history of multisystem organ failure secondary to an accidental Tylenol overdose several months ago who is currently at home and has home health care and presents with daughter for personality change more confusion that started 2 days ago. According to the daughter the patient had a fall yesterday but did not pass out or blackout and paramedics came to the house but she refused care. She is moving all extremities and has no complaints of any new pain. The patient is telling the daughter that she does not want to take her lactulose for the last 2 days because it upsets her stomach and causes abdominal discomfort. The patient has Zofran and promethazine at home but the daughter says that it is not nausea that the patient is experiencing but is more discomfort. She has not had a bowel movement for 1 week that has been significant only small amounts and it is been very hard. The patient is on chronic noncardiac and that has not changed but the daughter says the lactulose has not helped with the constipation. She has not given her anything else for constipation. The patient denies any chest pain shortness of breath headache nausea vomiting or abdominal pain here and has no extremity complaints or back pain. She only states that she feels woozy sometimes when she is standing and she has no complaints as a result of her fall yesterday. She also states that she has generalized weakness which comes and goes and she feels that that contributed to her fall yesterday. According to the charts I reviewed in the computer the patient has a history of deafness and she has a chronic indwelling NG tube that they use for 2 feedings but she is able to take medications. According to the daughter she has been encouraged to start taking oral soup and small bites. Review of systems: As per history of present illness and below otherwise all systems reviewed and negative. Past medical history: As per history of present illness and as reviewed below otherwise noncontributory. Surgical history: As per history of present illness and as reviewed below otherwise noncontributory. Social history: No reported history of drug or alcohol abuse. Family history: As per history of present illness and as reviewed below otherwise noncontributory. Physical exam: Gen.: Well-developed well-nourished female who is nontoxic and speaking clearly and easily. She is cooperative and alert and oriented. HEENT: Atraumatic, normocephalic, pupils reactive, negative for conjunctival pallor or scleral icterus, mucous membranes moist, throat clear, neck supple, nontender, trachea midline. Chronic indwelling NG tube is seen at the left narrowing Lungs: Clear to auscultation, breath sounds equal bilaterally, chest nontender. Heart: S1S2, regular, negative for clicks, rubs, or JVD. Abdomen: Soft, nondistended, nontender. Negative for masses or hepatosplenomegaly. Negative for costovertebral tenderness. Pelvis: Stable nontender. Genitourinary: Deferred. Rectal: Deferred. Extremities: Atraumatic, full range of motion with any defects or deficits negative for cords or calf pain. Neurovascular unremarkable. Neuro: Awake, alert, oriented. Cranial nerves II through XII unremarkable. Cerebellum unremarkable. Motor and sensory unremarkable throughout. Exam nonfocal. Back: There are no midline step-offs in his defects of the cervical thoracic or lumbar spine and no soft tissue swelling or injuries are appreciated. Diagnostics: EKG CBC CMP INR ammonia level troponin TSH UA urine culture vindicated magnesium level chest x-ray CT scan of the head Please note that the EKG from today was compared to one done December 10 and they look similar. Therapeutics: IV O2 monitor lactulose 1510: I discussed with family and patient all testing results and also discussed the case with Dr. Penny. He accepts the patient for observation admission. Impression: Altered mental status mild, hyperammonemia with history of same Definitive disposition and diagnosis as appropriate pending reevaluation and review of above. Abdomen Pain Score (Numeric/FACES): 10 - Related Data Allergies Allergy/AdvReac Type Severity Reaction Status Date / Time No Known Allergies Allergy Verified 12/24/16 12:44 Home Meds: Home Meds Amylase/Lipase/Protease [Deisi GARCIA 24,000 Unit] 1 cap PO 6XDAY 12/10/16 [History] Lactulose 10 gm PO BEDTIME 12/10/16 [History] Magnesium Oxide [Magnesium] 400 mg PO BID 12/10/16 [History] Thiamine [Vitamin B-1] 100 mg PO BEDTIME 12/10/16 [History] Ondansetron [Zofran ODT] 4 mg PO Q8H PRN #30 tab.dis 12/15/16 [Rx] Promethazine [Phenadoz] 12.5 mg RECTAL Q6H PRN #8 supp 12/15/16 [Rx] Promethazine [Phenergan] 25 mg PO Q6H PRN #30 tablet 12/15/16 [Rx] fentaNYL [Duragesic] 75 mcg TRDERM Q72H #10 patch 12/15/16 [Rx] oxyCODONE 10 mg PO Q6H PRN #30 tablet 12/15/16 [Rx] Insulin Glargine,Hum.Rec.Anlog [Lantus Solostar] 24 unit SQ BEDTIME 12/24/16 [ History] Spironolactone [Aldactone] 100 mg PO DAILY 12/24/16 [History] Past Medical History HEENT History: Reports: Hard of Hearing Other HEENT History: 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, 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 Cardiovascular History: Reports: None Respiratory History: Reports: None Gastrointestinal History: Reports: Hepatitis, Pancreatitis Genitourinary History: Reports: Acute Renal Failure [employer] History: Reports: None Musculoskeletal History: Reports: None Neurological History: Reports: Seizure, Speech Problems Psychiatric History: Reports: Addiction, Anxiety, Depression, PTSD Endocrine/Metabolic History: Reports: Diabetes, Type II Hematologic History: Reports: B12 Deficiency, Blood Transfusion(s), Folic Acid Immunologic History: Reports: Immunosuppression Oncologic (Cancer) History: Reports: None Dermatologic History: Reports: None - Past Surgical History Head Surgeries/Procedures: Reports: None Other GI Surgeries/Procedures: NG tube placed September 2016 Social & Family History - Family History Family Medical History: Noncontributory HEENT: Reports: Cataract Cardiac: Reports: Hypertension Psychiatric: Reports: Anxiety, Depression Endocrine/Metabolic: Reports: Diabetes, type II - Tobacco Use Smoking Status *Q: Former Smoker Years of Tobacco use: 8 Packs/Tins Daily: 0.5 Used Tobacco, but Quit: Yes Month Tobacco Last Used: september Second Hand Smoke Exposure: No - Caffeine Use Caffeine Use: Reports: Soda - Alcohol Use Number of Drinks Per Day: 1 - Recreational Drug Use Recreational Drug Use: No ED ROS GENERAL - Review of Systems Review Of Systems: ROS reveals no pertinent complaints other than HPI. ED EXAM, GENERAL - Physical Exam Exam: See Below (See dictation) Course - Vital Signs Last Recorded V/S: Last Vital Signs Temp 36.4 C 12/24/16 14:46 Pulse 91 12/24/16 14:46 Resp 14 12/24/16 14:46 BP 103/79 12/24/16 14:46 Pulse Ox 96 12/24/16 14:46 - Orders/Labs/Meds Orders: Active Orders 24 hr Category Date Time Status Patient Status [ADT] Stat ADT 12/24/16 15:25 Ordered Cardiac Monitoring [RC] . DIRECTED Care 12/24/16 12:49 Active EKG Documentation Completion [RC] STAT Care 12/24/16 12:49 Active Oxygen Therapy, ED [RC] ASDIRECTED Care 12/24/16 12:49 Active Pulse Oximetry [RC] ASDIRECTED Care 12/24/16 12:49 Active Sodium Chloride 0.9% [Saline Flush] Med 12/24/16 12:50 Active 10 ml FLUSH ASDIRECTED PRN Sodium Chloride 0.9% [Saline Flush] Med 12/24/16 12:50 Active 2.5 ml FLUSH ASDIRECTED PRN Saline Lock Insert [OM.PC] Stat Oth 12/24/16 12:49 Ordered Medication Orders Sodium Chloride (Saline Flush) 10 ml FLUSH ASDIRECTED PRN PRN Reason: Keep Vein Open Sodium Chloride (Saline Flush) 2.5 ml FLUSH ASDIRECTED PRN PRN Reason: Keep Vein Open Labs: Laboratory Tests 12/24/16 12/24/16 12/24/16 Range/Units 12:38 13:00 13:00 WBC 12.42 H (4.0-11.0) K/uL RBC 4.39 (4.30-5.90) M/uL Hgb 12.8 (12.0-16.0) g/dL Hct 38.0 (36.0-46.0) % MCV 86.6 (80.0-98.0) fL MCH 29.2 (27.0-32.0) pg MCHC 33.7 (31.0-37.0) g/dL RDW Std Deviation 48.0 (28.0-62.0) fl RDW Coeff of Bert 15 (11.0-15.0) % Plt Count 276 (150-400) K/uL MPV 10.40 (7.40-12.00) fL Neut % (Auto) 72.5 (48.0-80.0) % Lymph % (Auto) 16.3 (16.0-40.0) % [place] % (Auto) 8.9 (0.0-15.0) % Eos % (Auto) 2.0 (0.0-7.0) % Baso % (Auto) 0.3 (0.0-1.5) % Neut # (Auto) 9.0 H (1.4-5.7) K/uL Lymph # (Auto) 2.0 (0.6-2.4) K/uL [place] # (Auto) 1.1 H (0.0-0.8) K/uL Eos # (Auto) 0.3 (0.0-0.7) K/uL Baso # (Auto) 0.0 (0.0-0.1) K/uL Nucleated RBC % 0.0 /100WBC Nucleated RBCs # 0 K/uL INR 1.12 H (0.86-1.11) Sodium (136-146) mmol/L Potassium (3.5-5.1) mmol/L Chloride (98-110) mmol/L Carbon Dioxide (21-31) mmol/L BUN (6.0-23.0) mg/dL Creatinine (0.6-1.5) mg/dL Est Cr Clr Drug Dosing mL/min Estimated GFR (MDRD) ml/min Glucose (60-110) mg/dL Calcium (8.8-10.8) mg/dL Magnesium (1.5-2.3) mEq/L Total Bilirubin (0.1-1.5) mg/dL AST (5-40) IU/L ALT (8-54) IU/L Alkaline Phosphatase (40-150) Ammonia (14-68) UG/DL Troponin I (0.0-0.29) NG/ML Total Protein (6.0-8.0) g/dL Albumin (3.5-5.0) g/dL Globulin (2.0-3.5) g/dL Albumin/Globulin Ratio (1.3-2.8) TSH 3rd Generation (0.47-5.0) uIU/mL Urine Color YELLOW Urine Appearance CLEAR Urine pH 6.0 (5.0-8.0) Ur Specific Jackson 1.010 (1.001-1.035) Urine Protein NEGATIVE (NEGATIVE) mg/dL Urine Glucose (UA) NEGATIVE (NEGATIVE) mg/dL Urine Ketones NEGATIVE (NEGATIVE) mg/dL Urine Occult Blood NEGATIVE (NEGATIVE) Urine Nitrite NEGATIVE (NEGATIVE) Urine Bilirubin NEGATIVE (NEGATIVE) Urine Urobilinogen 0.2 (<2.0) EU/dL Ur Leukocyte Esterase NEGATIVE (NEGATIVE) Urine RBC 0-1 (0-2/HPF) Urine WBC 0-2 (0-5/HPF) Ur Epithelial Cells FEW (NONE-FEW) Urine Bacteria FEW (NEGATIVE) 12/24/16 12/24/16 12/24/16 Range/Units 13:00 13:00 13:00 WBC (4.0-11.0) K/uL RBC (4.30-5.90) M/uL Hgb (12.0-16.0) g/dL Hct (36.0-46.0) % MCV (80.0-98.0) fL MCH (27.0-32.0) pg MCHC (31.0-37.0) g/dL RDW Std Deviation (28.0-62.0) fl RDW Coeff of Bert (11.0-15.0) % Plt Count (150-400) K/uL MPV (7.40-12.00) fL Neut % (Auto) (48.0-80.0) % Lymph % (Auto) (16.0-40.0) % [place] % (Auto) (0.0-15.0) % Eos % (Auto) (0.0-7.0) % Baso % (Auto) (0.0-1.5) % Neut # (Auto) (1.4-5.7) K/uL Lymph # (Auto) (0.6-2.4) K/uL [place] # (Auto) (0.0-0.8) K/uL Eos # (Auto) (0.0-0.7) K/uL Baso # (Auto) (0.0-0.1) K/uL Nucleated RBC % /100WBC Nucleated RBCs # K/uL INR (0.86-1.11) Sodium 129 L (136-146) mmol/L Potassium 4.7 (3.5-5.1) mmol/L Chloride 99 (98-110) mmol/L Carbon Dioxide 19 L (21-31) mmol/L BUN 18 (6.0-23.0) mg/dL Creatinine 0.9 (0.6-1.5) mg/dL Est Cr Clr Drug Dosing 58.63 mL/min Estimated GFR (MDRD) > 60.0 ml/min Glucose 137 H (60-110) mg/dL Calcium 9.0 (8.8-10.8) mg/dL Magnesium 1.6 (1.5-2.3) mEq/L Total Bilirubin 0.6 (0.1-1.5) mg/dL AST 23 (5-40) IU/L ALT 14 (8-54) IU/L Alkaline Phosphatase 95 (40-150) Ammonia 82 H (14-68) UG/DL Troponin I < 0.10 (0.0-0.29) NG/ML Total Protein 7.4 (6.0-8.0) g/dL Albumin 3.8 (3.5-5.0) g/dL Globulin 3.6 H (2.0-3.5) g/dL Albumin/Globulin Ratio 1.1 L (1.3-2.8) TSH 3rd Generation 0.80 (0.47-5.0) uIU/mL Urine Color Urine Appearance Urine pH (5.0-8.0) Ur Specific Jackson (1.001-1.035) Urine Protein (NEGATIVE) mg/dL Urine Glucose (UA) (NEGATIVE) mg/dL Urine Ketones (NEGATIVE) mg/dL Urine Occult Blood (NEGATIVE) Urine Nitrite (NEGATIVE) Urine Bilirubin (NEGATIVE) Urine Urobilinogen (<2.0) EU/dL Ur Leukocyte Esterase (NEGATIVE) Urine RBC (0-2/HPF) Urine WBC (0-5/HPF) Ur Epithelial Cells (NONE-FEW) Urine Bacteria (NEGATIVE) Meds: Medications Generic Name Dose Route Start Last Admin Trade Name Freq PRN Reason Stop Dose Admin Sodium Chloride 10 ml 12/24/16 12:50 Saline Flush FLUSH ASDIRECTED PRN Keep Vein Open Sodium Chloride 2.5 ml 12/24/16 12:50 Saline Flush FLUSH ASDIRECTED PRN Keep Vein Open Discontinued Medications Generic Name Dose Route Start Last Admin Trade Name Freq PRN Reason Stop Dose Admin Lactulose 30 gm 12/24/16 14:56 Chronulac FTUBE 12/24/16 14:57 ONETIME ONE Departure - Departure Time of Disposition: 15:27 Disposition: Refer to Observation Condition: Good Clinical Impression: Hyperammonemia Altered mental status Qualifiers: Altered mental status type: unspecified Qualified Code(s): R41.82 - Altered mental status, unspecified - Discharge Information Forms: ED Department Discharge - My Orders Last 24 Hours: My Active Orders 12/24/16 12:49 Cardiac Monitoring [RC] . DIRECTED EKG Documentation Completion [RC] STAT Oxygen Therapy, ED [RC] ASDIRECTED Pulse Oximetry [RC] ASDIRECTED Saline Lock Insert [OM.PC] Stat 12/24/16 12:50 Sodium Chloride 0.9% [Saline Flush] 10 ml FLUSH ASDIRECTED PRN Sodium Chloride 0.9% [Saline Flush] 2.5 ml FLUSH ASDIRECTED PRN 12/24/16 15:25 Patient Status [ADT] Stat - Assessment/Plan Last 24 Hours: My Active Orders 12/24/16 12:49 Cardiac Monitoring [RC] . DIRECTED EKG Documentation Completion [RC] STAT Oxygen Therapy, ED [RC] ASDIRECTED Pulse Oximetry [RC] ASDIRECTED Saline Lock Insert [OM.PC] Stat 12/24/16 12:50 Sodium Chloride 0.9% [Saline Flush] 10 ml FLUSH ASDIRECTED PRN Sodium Chloride 0.9% [Saline Flush] 2.5 ml FLUSH ASDIRECTED PRN 12/24/16 15:25 Patient Status [ADT] Stat
[2016-12-24 13:40] LABS: CHLORIDE,CL 99 mmol/L (98-110); SODIUM,NA 129 mmol/L (136-146)
--- NOTE | 2016-12-24 14:42 | CT ---
EXAMINATION: Non contrast CT head. Coronal and sagittal reformats. HISTORY: Pain FINDINGS: No evidence of intra or extra axial hemorrhage, mass, midline shift, hydrocephalus or edema. No hypoattenuation changes in the major vascular territories to suggest acute infarct. No abnormal intracranial calcifications are detected. No evidence of substantial vascular calcifica tions. Paranasal sinuses and mastoid air cells are well aerated without substantial findings. Pituitary fossa appears unremarkable. Calvarium is intact. No evidence of skull fracture. IMPRESSION: No acute intracranial findings.
--- NOTE | 2016-12-24 14:45 | CR ---
EXAMINATION: AP chest and AP and upright abdomen HISTORY: Shortness of breath. FINDINGS: The trachea is midline. The cardiomediastinal silhouette is within normal limits. No pulmonary infil trates, effusions or pneumothorax. There is a nasojejunal tube noted. There is a small amount of stool and gas within the colon. There are a few borderline loops of small bowel. No abnormal calcifications project over the kidneys. No o rganomegaly. No free air under the diaphragm. There is a stent within the left upper quadrant. Osseous structures appear unremarkable. IMPRESSION: 1. No acute cardiopulmonary process. 2. Nasojejunal tube with tip in good position. 3. Nonobstructive bowel gas pattern.
[2016-12-24] MEDS ORDERED: Lactulose Soln 10 GM/15 ML 15 ML UD Cup FTUBE ONE (14:56)
[2016-12-24] MEDS ORDERED: Ondansetron 4 MG/2 ML SDV IVPUSH ONE (15:35)
[2016-12-24] MEDS ORDERED: oxyCODONE 5 MG Tab PO ONE (15:51)
[2016-12-24] MEDS ORDERED: Ondansetron 4 MG Tab.DIS PO PRN (18:06)
[2016-12-24] MEDS ORDERED: Promethazine 12.5 MG Supp RECTAL PRN (18:06)
[2016-12-24] MEDS ORDERED: Promethazine 25 MG Tab PO PRN (18:06)
--- NOTE | 2016-12-24 18:11 | PCM.HP ---
H&P History of Present Illness - History of Present Illness Initial Comments - Free Text/Narative: 51 yo female with pmh of accidently tylenol overdose with prolonged hospitalization for multiorgan failure. She was discharged to home two weeks ago and swas admitted once here last week for altered mental status which was felt to be due to high ammonia levels, hyponatremia, and narcotic use. She has chronic abdominal pain for which she takes a fentanyl patch and prn oxycodone. She has a [place] tube and has tube feedings at night. She has been encouraged to eat extra by mouth as tolerated. She has been having anxiety for which she gets spells that can cause shortness of breath. She started taking ativan several days ago for this. She also has been having increased cramping for which she has blamed lactulose for. She stoped taking the lactulose and the cramping pain has improved. Without the lactulose her bowel movements have been less frequent. Over the past several days she has had increase in her confusion. She has had falls at home. She is making up stories about why she is in the hospital. Her mental status is slightly difficult to assess due to her deafness but her daughter who is her child day care center worker reports a sharp decline in cognition the past few days. Her sodium today was noted to be 129. During her last admission her sodium was 122 which improved to normal with IV fluids of normal saline. Abdomen Pain Score (Numeric/FACES): 10 - Related Data Allergies/Adverse Reactions: Allergies Allergy/AdvReac Type Severity Reaction Status Date / Time No Known Allergies Allergy Verified 12/24/16 12:44 Home Medications: Home Meds Amylase/Lipase/Protease [Deisi GARCIA 24,000 Unit] 1 cap PO 6X12/10/16 [History] Lactulose 10 gm PO BEDTIME 12/10/16 [History] Magnesium Oxide [Magnesium] 400 mg PO BID 12/10/16 [History] Thiamine [Vitamin B-1] 100 mg PO BEDTIME 12/10/16 [History] Ondansetron [Zofran ODT] 4 mg PO Q8H PRN #30 tab.dis 12/15/16 [Rx] Promethazine [Phenadoz] 12.5 mg RECTAL Q6H PRN #8 supp 12/15/16 [Rx] Promethazine [Phenergan] 25 mg PO Q6H PRN #30 tablet 12/15/16 [Rx] fentaNYL [Duragesic] 75 mcg TRDERM Q72H #10 patch 12/15/16 [Rx] oxyCODONE 10 mg PO Q6H PRN #30 tablet 12/15/16 [Rx] Insulin Glargine,Hum.Rec.Anlog [Lantus Solostar] 24 unit SQ BEDTIME 12/24/16 [ History] LORazepam 0.5 mg PO QID PRN 12/24/16 [History] Nut.Tx.Impaired Digest Fxn [Peptamen] 600 ml NJTUBE BEDTIME 12/24/16 [History] Spironolactone [Aldactone] 100 mg PO DAILY 12/24/16 [History] Past Medical History HEENT History: Reports: Hard of Hearing Other HEENT History: 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, 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 Cardiovascular History: Reports: None Respiratory History: Reports: None Gastrointestinal History: Reports: Hepatitis, Pancreatitis Genitourinary History: Reports: Acute Renal Failure [employer] History: Reports: None Musculoskeletal History: Reports: None Neurological History: Reports: Seizure, Speech Problems Psychiatric History: Reports: Addiction, Anxiety, Depression, PTSD Endocrine/Metabolic History: Reports: Diabetes, Type II Hematologic History: Reports: B12 Deficiency, Blood Transfusion(s), Folic Acid Immunologic History: Reports: Immunosuppression Oncologic (Cancer) History: Reports: None Dermatologic History: Reports: None - Past Surgical History Head Surgeries/Procedures: Reports: None Other GI Surgeries/Procedures: NG tube placed October 06, 2016; biliary stent in place Social & Family History - Family History Family Medical History: Noncontributory HEENT: Reports: Cataract Cardiac: Reports: Hypertension Psychiatric: Reports: Anxiety, Depression Endocrine/Metabolic: Reports: Diabetes, type II - Tobacco Use Smoking Status *Q: Former Smoker Years of Tobacco use: 8 Packs/Tins Daily: 0.5 Used Tobacco, but Quit: Yes Month Tobacco Last Used: 07/28 Second Hand Smoke Exposure: No - Caffeine Use Caffeine Use: Reports: None - Alcohol Use Number of Drinks Per Day: 1 - Recreational Drug Use Recreational Drug Use: No H&P Review of Systems - Review of Systems: Review Of Systems: Unable To Obtain Exam - Exam Exam: See Below - Vital Signs Vital Signs: Last Vital Signs Temp 36.7 C 12/24/16 16:20 Pulse 97 12/24/16 16:20 Resp 18 12/24/16 16:20 BP 102/68 12/24/16 16:20 Pulse Ox 98 12/24/16 16:20 Weight: 61.3 kg - Exam General: Cooperative. No: Mild Distress HEENT: Mucosa Moist & [place] Neck: Supple, Trachea Midline, 2 Lungs: Clear to Auscultation, Normal Respiratory Effort Cardiovascular: Regular Rate, Regular Rhythm Abdomen: Normal Bowel Sounds, Soft. No: Distention, Guarding, Rigidity Extremities: Normal Inspection Skin: Warm, Dry, Intact Neurological: No: Focal Deficit - Patient Data Result Diagrams: 12/25/16 05:00 12/25/16 05:00 *Q Meaningful Use (ADM) - VTE *Q VTE Criteria *Q: - Stroke *Q Stroke Criteria *Q: - AMI *Q AMI Criteria *Q: Problem List Initiated/Reviewed/Updated: Yes Orders Last 24hrs: Active Orders 24 hr Category Date Time Status Amylase/Lipase/Protease [Deisi GARCIA 24,000 Units] Med 12/24/16 21:00 Ordered 1 cap PO 6XDAY Insulin Glarg,Human.Rec.Analog [LantUS Solostar] Med 12/24/16 21:00 Ordered 24 units SUBCUT BEDTIME Lactulose [Chronulac] Med 12/24/16 18:08 Ordered 10 gm PO Q3H PRN Ondansetron [Zofran ODT] Med 12/24/16 18:06 Ordered 4 mg PO Q8H PRN Promethazine [Phenadoz] Med 12/24/16 18:06 Ordered 12.5 mg RECTAL Q6H PRN Promethazine [Phenergan] Med 12/24/16 18:06 Ordered 25 mg PO Q6H PRN Sodium Chloride 0.9% @ 125 MLS/HR (1,000ml) Med 12/24/16 18:15 Ordered Sodium Chloride 0.9% [Normal Saline] 1,000 ml IV ASDIRECTED Spironolactone Med 12/25/16 09:00 Ordered 100 mg PO DAILY Thiamine [Vitamin B-1] Med 12/24/16 21:00 Ordered 100 mg PO BEDTIME fentaNYL [Duragesic] Med 12/24/16 18:15 Ordered 75 mcg TRDERM Q72H oxyCODONE Med 12/24/16 18:06 Ordered 10 mg PO Q6H PRN Medication Orders Lipase/Protease/Amylase (Creon Dr 24,000 Units) 1 cap PO 6XDAY RUBÉN Fentanyl (Duragesic) 75 mcg TRDERM Q72H RUBÉN Insulin Glargine (Lantus Solostar) 24 units SUBCUT BEDTIME RUBÉN Lactulose (Chronulac) 10 gm PO Q3H PRN PRN Reason: constipation Non-Formulary Medication (Spironolactone) 100 mg PO DAILY [facility] [place] Ondansetron HCl (Zofran Odt) 4 mg PO Q8H PRN PRN Reason: Nausea/Vomiting Oxycodone HCl (Oxycodone) 10 mg PO Q6H PRN PRN Reason: Pain Promethazine HCl (Phenergan) 25 mg PO Q6H PRN PRN Reason: Nausea/Vomiting Promethazine HCl (Phenadoz) 12.5 mg RECTAL Q6H PRN PRN Reason: Nausea/Vomiting Sodium Chloride (Saline Flush) 10 ml FLUSH ASDIRECTED PRN PRN Reason: Keep Vein Open Sodium Chloride (Saline Flush) 2.5 ml FLUSH ASDIRECTED PRN PRN Reason: Keep Vein Open Thiamine HCl (Vitamin B-1) 100 mg PO BEDTIME [facility] [place] Assessment/Plan Comment:: 51 yo female with pmh of hepatic and pancreatic injury from Tylenol poisoning who present with altered mental status. I suspect AMS is multifactorial from stopping lactulose, starting ativan, hyponatremia and narcotic use. Will resume lactulose, hold ativan, and gently hydrate with IV fluids of normal saline.
[2016-12-24] MEDS ORDERED: fentaNYL 75 MCG/HR Transdermal Patch TRDERM SCH (19:00)
[2016-12-24] MEDS: Sodium Chloride 0.9% 1,000 ML IV SCH (19:24)
[2016-12-24] MEDS ORDERED: Amylase/Lipase/Protease 24,000 Unit Cap.CR PO SCH (21:00)
[2016-12-24] MEDS: ENTERAL FORMULA NJTUBE SCH (21:30)
[2016-12-24] MEDS: Thiamine 100 MG Tab PO SCH (21:31)
[2016-12-24] MEDS: CREON 24000 UNIT PO SCH (21:47)
[2016-12-24] MEDS: Insulin Glargine,Human Rec. Analog 100 Units/ML 3 ML Pen SUBCUT SCH (21:57)
[2016-12-24] MEDS: oxyCODONE 5 MG Tab PO PRN (23:09)
[2016-12-24] MEDS: Ondansetron 4 MG/2 ML SDV IVPUSH PRN (23:11)
[2016-12-25] MEDS: Sodium Chloride 0.9% 1,000 ML IV SCH ×4 (02:56→22:34)
[2016-12-25] MEDS: CREON 24000 UNIT PO SCH ×6 (05:16→20:45)
[2016-12-25] MEDS: oxyCODONE 5 MG Tab PO PRN ×3 (05:16→17:36)
[2016-12-25 05:38] LABS: CHLORIDE,CL 105 mmol/L (98-110); SODIUM,NA 131 mmol/L (136-146)
[2016-12-25] MEDS: Spironolactone 25 MG Tab PO SCH (08:12)
[2016-12-25] MEDS: Ondansetron 4 MG/2 ML SDV IVPUSH PRN (08:25)
--- NOTE | 2016-12-25 13:17 | PCM.PN ---
- Review of Systems Systems Review Comment:: less confused today. - Patient Data Vitals - most recent: Last Vital Signs Temp 36.6 C 12/25/16 12:17 Pulse 70 12/25/16 12:17 Resp 17 12/25/16 12:17 BP 100/62 12/25/16 12:17 Pulse Ox 95 12/25/16 12:17 Weight - most recent: 61.3 kg I&O - last 24 hours: Intake & Output 12/24/16 12/25/16 12/25/16 22:59 06:59 14:59 Intake Total 2322 800 Output Total 200 Balance 2122 800 Lab Results last 24 hrs: Laboratory Results - last 24 hr 12/24/16 12/25/16 12/25/16 Range/Units 21:57 05:00 05:00 WBC 10.11 (4.0-11.0) K/uL RBC 4.04 L (4.30-5.90) M/uL Hgb 11.7 L (12.0-16.0) g/dL Hct 35.1 L (36.0-46.0) % MCV 86.9 (80.0-98.0) fL MCH 29.0 (27.0-32.0) pg MCHC 33.3 (31.0-37.0) g/dL RDW Std Deviation 48.6 (28.0-62.0) fl RDW Coeff of Bert 15 (11.0-15.0) % Plt Count 276 (150-400) K/uL MPV 11.00 (7.40-12.00) fL Nucleated RBC % 0.0 /100WBC Nucleated RBCs # 0 K/uL Sodium 131 L (136-146) mmol/L Potassium 4.6 (3.5-5.1) mmol/L Chloride 105 (98-110) mmol/L Carbon Dioxide 18 L (21-31) mmol/L BUN 14 (6.0-23.0) mg/dL Creatinine 0.8 (0.6-1.5) mg/dL Est Cr Clr Drug Dosing 65.96 mL/min Estimated GFR (MDRD) > 60.0 ml/min Glucose 138 H (60-110) mg/dL POC Glucose 124 H (60-110) mg/dL Calcium 8.5 L (8.8-10.8) mg/dL Total Bilirubin 0.5 (0.1-1.5) mg/dL AST 21 (5-40) IU/L ALT 13 (8-54) IU/L Alkaline Phosphatase 83 (40-150) Total Protein 6.5 (6.0-8.0) g/dL Albumin 3.4 L (3.5-5.0) g/dL Globulin 3.1 (2.0-3.5) g/dL Albumin/Globulin Ratio 1.1 L (1.3-2.8) // Range/Units 11:02 WBC (4.0-11.0) K/uL RBC (4.30-5.90) M/uL Hgb (12.0-16.0) g/dL Hct (36.0-46.0) % MCV (80.0-98.0) fL MCH (27.0-32.0) pg MCHC (31.0-37.0) g/dL RDW Std Deviation (28.0-62.0) fl RDW Coeff of Bert (11.0-15.0) % Plt Count (150-400) K/uL MPV (7.40-12.00) fL Nucleated RBC % /100WBC Nucleated RBCs # K/uL Sodium (136-146) mmol/L Potassium (3.5-5.1) mmol/L Chloride (98-110) mmol/L Carbon Dioxide (21-31) mmol/L BUN (6.0-23.0) mg/dL Creatinine (0.6-1.5) mg/dL Est Cr Clr Drug Dosing mL/min Estimated GFR (MDRD) ml/min Glucose (60-110) mg/dL POC Glucose 114 H (60-110) mg/dL Calcium (8.8-10.8) mg/dL Total Bilirubin (0.1-1.5) mg/dL AST (5-40) IU/L ALT (8-54) IU/L Alkaline Phosphatase (40-150) Total Protein (6.0-8.0) g/dL Albumin (3.5-5.0) g/dL Globulin (2.0-3.5) g/dL Albumin/Globulin Ratio (1.3-2.8) Med Orders - Current: Current Medications Lipase/Protease/Amylase (Crechencho Dr 24,000 Units) 1 cap PO 6XDAY [facility] Last Admin: 12/25/16 11:42 Dose: 1 cap Fentanyl (Duragesic) 75 mcg TRDERM Q72H [facility] Sodium Chloride (Normal Saline) 1,000 mls @ 75 mls/hr IV ASDIRECTED [facility] Last Admin: 12/25/16 11:15 Dose: 125 mls/hr Insulin Glargine (Lantus Solostar) 24 units SUBCUT BEDTIME [facility] Last Admin: 12/24/16 21:57 Dose: 24 units Lactulose (Chronulac) 10 gm PO Q3H PRN PRN Reason: constipation Peptamen Enteral Tube Feeding Own Med 0 ml NJTUBE BEDTIME [facility] Last Admin: 12/24/16 21:30 Dose: 600 ml Ondansetron HCl (Zofran) 4 mg IVPUSH Q4H PRN PRN Reason: Nausea Last Admin: 12/25/16 08:25 Dose: 4 mg Oxycodone HCl (Oxycodone) 10 mg PO Q6H PRN PRN Reason: Pain Last Admin: 12/25/16 11:43 Dose: 10 mg Promethazine HCl (Phenergan) 25 mg PO Q6H PRN PRN Reason: Nausea/Vomiting Promethazine HCl (Phenadoz) 12.5 mg RECTAL Q6H PRN PRN Reason: Nausea/Vomiting Sodium Chloride (Saline Flush) 10 ml FLUSH ASDIRECTED PRN PRN Reason: Keep Vein Open Sodium Chloride (Saline Flush) 2.5 ml FLUSH ASDIRECTED PRN PRN Reason: Keep Vein Open Spironolactone (Aldactone) 100 mg PO DAILY [facility] Last Admin: 12/25/16 08:12 Dose: 100 mg Thiamine HCl (Vitamin B-1) 100 mg PO BEDTIME [facility] Last Admin: 12/24/16 21:31 Dose: 100 mg Discontinued Medications Fentanyl (Duragesic) 75 mcg TRDERM Q72H [facility] Lactulose (Chronulac) 30 gm FTUBE ONETIME ONE Stop: 12/24/16 14:57 Last Admin: 12/24/16 16:18 Dose: 30 gm Ondansetron HCl (Zofran) 4 mg IVPUSH ONETIME ONE Stop: 12/24/16 15:36 Last Admin: 12/24/16 16:09 Dose: 4 mg Ondansetron HCl (Zofran Odt) 4 mg PO Q8H PRN PRN Reason: Nausea/Vomiting Oxycodone HCl (Oxycodone) 10 mg PO ONETIME ONE Stop: 12/24/16 15:52 Last Admin: 12/24/16 16:09 Dose: 10 mg - Exam General: alert, oriented, cooperative Lungs: Clear to auscultation, Normal respiratory effort Cardiovascular: Regular Rate, Regular Rhythm Abdomen: bowel sounds present, soft, no distension Extremities: no edema Skin: warm, dry, intact Neurological: no new focal deficit - Problem List Review Problem List Initiated/Reviewed/Updated: Yes - My Orders Last 24 Hours: My Active Orders 12/24/16 18:06 Promethazine [Phenadoz] 12.5 mg RECTAL Q6H PRN Promethazine [Phenergan] 25 mg PO Q6H PRN oxyCODONE 10 mg PO Q6H PRN 12/24/16 18:08 Lactulose [Chronulac] 10 gm PO Q3H PRN 12/24/16 18:12 Blood Glucose Check, Bedside [RC] Q6HR Intake and Output [RC] QSHIFT Oxygen Therapy [RC] PRN Up With Assistance [RC] ASDIRECTED VTE/DVT Education [RC] PER UNIT ROUTINE Vital Signs [RC] Q4H Resuscitation Status Routine 12/24/16 18:13 Antiembolic Devices [RC] PER UNIT ROUTINE Sequential Compression Device [OM.PC] Per Unit Routine 12/24/16 18:15 Sodium Chloride 0.9% [Normal Saline] 1,000 ml IV ASDIRECTED 12/24/16 18:19 Communication Order [RC] ROUTINE 12/24/16 19:20 Ondansetron [Zofran] 4 mg IVPUSH Q4H PRN 12/24/16 21:00 Insulin Glarg,Human.Rec.Analog [LantUS Solostar] 24 units SUBCUT BEDTIME Nut.Tx.Impaired Digest Fxn [Peptamen] 0 ml NJTUBE BEDTIME Thiamine [Vitamin B-1] 100 mg PO BEDTIME 12/24/16 21:45 Amylase/Lipase/Protease [Creon DR 24,000 Units] 1 cap PO 6X12/25/16 09:00 Spironolactone [Aldactone] 100 mg PO DAILY 06/17/17 05:11 CBC W/O DIFF,HEMOGRAM [HEME] AM COMPREHENSIVE METABOLIC PN,CMP [CHEM] AM 12/26/16 09:00 fentaNYL [Duragesic] 75 mcg TRDERM Q72H - Plan Plan:: 51 yo female with pmh of hepatic and pancreatic injury from Tylenol poisoning who present with altered mental status. I suspect AMS is multifactorial from stopping lactulose, starting ativan, hyponatremia and narcotic use. Patient has had five bowel movements, mentation and sodium levels improving. Will continue lactulose, gently hydrate with IV fluids of normal saline. Anticipate discharge home tomorrow.
[2016-12-25] MEDS: Lactulose Soln 10 GM/15 ML 15 ML UD Cup PO PRN ×2 (18:24→20:47)
[2016-12-25] MEDS: Thiamine 100 MG Tab PO SCH (20:45)
[2016-12-25] MEDS: Insulin Glargine,Human Rec. Analog 100 Units/ML 3 ML Pen SUBCUT SCH (20:46)
[2016-12-25] MEDS: ENTERAL FORMULA NJTUBE SCH (20:54)
[2016-12-26] MEDS: oxyCODONE 5 MG Tab PO PRN ×2 (01:13→06:43)
[2016-12-26 04:12] LABS: CHLORIDE,CL 107 mmol/L (98-110); SODIUM,NA 134 mmol/L (136-146)
[2016-12-26] MEDS: Lactulose Soln 10 GM/15 ML 15 ML UD Cup PO PRN ×2 (05:23→09:01)
[2016-12-26] MEDS: CREON 24000 UNIT PO SCH ×3 (05:23→12:13)
[2016-12-26] MEDS: Ondansetron 4 MG/2 ML SDV IVPUSH PRN (06:48)
[2016-12-26] MEDS ORDERED: fentaNYL 75 MCG/HR Transdermal Patch TRDERM SCH (09:00)
[2016-12-26] MEDS: Spironolactone 25 MG Tab PO SCH (09:00)
[2016-12-26 09:24] VITALS: BP 103/73
--- NOTE | 2016-12-26 12:14 | PCM.DCSUM1 ---
Discharge Summary - Discharge Data Discharge Date: 12/26/16 Discharge Disposition: Home, Self-Care 01 Condition: Good - Patient Summary/Data Hospital Course: Admission diagnosis Hepatic encephalopathy hyponatremia Pancreatic insufficiency Chronic abdominal pain Hospital course: 51 yo female with pmh of accidental tylenol overdose with prolonged hospitalization for multiorgan failure. She was discharged to home two weeks ago and was admitted once here last week for altered mental status which was felt to be due to high ammonia levels, hyponatremia, and narcotic use. She has chronic abdominal pain for which she takes a fentanyl patch and prn oxycodone. She has a [place] tube and has tube feedings at night. She presented again with confusion and falls. She had recently started taking ativan for anxiety and stopped taking her lactulose due to abdominal cramping. Her sodium was noted to be 129. She was admitted for altered mental status thought secondary to hepatic encephalopathy, hyponatremia, and benzo/narcotic use. She was given IV fluids of normal saline. Her lactulose was restarted and her ativan was discontinue. She did have improvement of her mental status and sodium increased to 134. She is being discharged back home today. Daughter reports she only has six more oxycodone left. I am writing for Oxycodone 5mg #10 to get her through the weekend so that she can call her PCP to refill. She has follow up appointment with Dr. Benz on December 31. - Discharge Plan Prescriptions/Med Rec: Lactulose 10 gm PO Q6H PRN 14 Days PRN Reason: Constipation oxyCODONE 10 mg PO Q6H PRN #10 tablet PRN Reason: Pain Home Medications: Home Meds Amylase/Lipase/Protease [Deisi DAVIS 24,000 Unit] 1 cap PO 6XDAY 12/10/16 [History] Magnesium Oxide [Magnesium] 400 mg PO BID 12/10/16 [History] Thiamine [Vitamin B-1] 100 mg PO BEDTIME 12/10/16 [History] Ondansetron [Zofran ODT] 4 mg PO Q8H PRN #30 tab.dis 12/15/16 [Rx] Promethazine [Phenadoz] 12.5 mg RECTAL Q6H PRN #8 supp 12/15/16 [Rx] Promethazine [Phenergan] 25 mg PO Q6H PRN #30 tablet 12/15/16 [Rx] fentaNYL [Duragesic] 75 mcg TRDERM Q72H #10 patch 12/15/16 [Rx] Insulin Glargine,Hum.Rec.Anlog [Lantus Solostar] 24 unit SQ BEDTIME 12/24/16 [ History] Nut.Tx.Impaired Digest Fxn [Peptamen] 600 ml NJTUBE BEDTIME 12/24/16 [History] Spironolactone [Aldactone] 100 mg PO DAILY 12/24/16 [History] Lactulose 10 gm PO Q6H PRN 14 Days 12/26/16 [Rx] oxyCODONE 10 mg PO Q6H PRN #10 tablet 12/26/16 [Rx] Referrals: Bobby Benz DO [Primary Care Provider] - 12/31/16 11:30 am - Patient Data Vitals - Most Recent: Last Vital Signs Temp 36.5 C 12/26/16 08:00 Pulse 87 12/26/16 08:00 Resp 16 12/26/16 08:00 BP 103/73 12/26/16 08:00 Pulse Ox 94 L 12/26/16 08:00 Weight - Most Recent: 60.7 kg I&O - Last 24 hours: Intake & Output 12/25/16 12/26/16 12/26/16 22:59 06:59 14:59 Intake Total 320 1930 Output Total 1900 800 Balance -1580 1130 Lab Results - Last 24 hrs: Laboratory Results - last 24 hr 12/25/16 12/25/16 12/26/16 Range/Units 15:37 21:17 01:21 WBC (4.0-11.0) K/uL RBC (4.30-5.90) M/uL Hgb (12.0-16.0) g/dL Hct (36.0-46.0) % MCV (80.0-98.0) fL MCH (27.0-32.0) pg MCHC (31.0-37.0) g/dL RDW Std Deviation (28.0-62.0) fl RDW Coeff of Bert (11.0-15.0) % Plt Count (150-400) K/uL MPV (7.40-12.00) fL Nucleated RBC % /100WBC Nucleated RBCs # K/uL Sodium (136-146) mmol/L Potassium (3.5-5.1) mmol/L Chloride (98-110) mmol/L Carbon Dioxide (21-31) mmol/L BUN (6.0-23.0) mg/dL Creatinine (0.6-1.5) mg/dL Est Cr Clr Drug Dosing mL/min Estimated GFR (MDRD) ml/min Glucose (60-110) mg/dL POC Glucose 109 (60-110) mg/dL Calcium (8.8-10.8) mg/dL Total Bilirubin (0.1-1.5) mg/dL AST (5-40) IU/L ALT (8-54) IU/L Alkaline Phosphatase (40-150) Troponin I < 0.10 < 0.10 (0.0-0.29) NG/ML Total Protein (6.0-8.0) g/dL Albumin (3.5-5.0) g/dL Globulin (2.0-3.5) g/dL Albumin/Globulin Ratio (1.3-2.8) 12/26/16 12/26/16 12/26/16 Range/Units 03:30 03:30 03:30 WBC 8.68 (4.0-11.0) K/uL RBC 3.72 L (4.30-5.90) M/uL Hgb 10.8 L (12.0-16.0) g/dL Hct 32.8 L (36.0-46.0) % MCV 88.2 (80.0-98.0) fL MCH 29.0 (27.0-32.0) pg MCHC 32.9 (31.0-37.0) g/dL RDW Std Deviation 50.0 (28.0-62.0) fl RDW Coeff of Bert 15 (11.0-15.0) % Plt Count 234 (150-400) K/uL MPV 10.60 (7.40-12.00) fL Nucleated RBC % 0.0 /100WBC Nucleated RBCs # 0 K/uL Sodium 134 L (136-146) mmol/L Potassium 4.2 (3.5-5.1) mmol/L Chloride 107 (98-110) mmol/L Carbon Dioxide 19 L (21-31) mmol/L BUN 10 (6.0-23.0) mg/dL Creatinine 0.8 (0.6-1.5) mg/dL Est Cr Clr Drug Dosing 65.96 mL/min Estimated GFR (MDRD) > 60.0 ml/min Glucose 148 H (60-110) mg/dL POC Glucose (60-110) mg/dL Calcium 8.7 L (8.8-10.8) mg/dL Total Bilirubin 0.5 (0.1-1.5) mg/dL AST 21 (5-40) IU/L ALT 10 (8-54) IU/L Alkaline Phosphatase 92 (40-150) Troponin I < 0.10 (0.0-0.29) NG/ML Total Protein 6.4 (6.0-8.0) g/dL Albumin 3.1 L (3.5-5.0) g/dL Globulin 3.3 (2.0-3.5) g/dL Albumin/Globulin Ratio 0.9 L (1.3-2.8) 12/26/ Range/Units 05:12 WBC (4.0-11.0) K/uL RBC (4.30-5.90) M/uL Hgb (12.0-16.0) g/dL Hct (36.0-46.0) % MCV (80.0-98.0) fL MCH (27.0-32.0) pg MCHC (31.0-37.0) g/dL RDW Std Deviation (28.0-62.0) fl RDW Coeff of Bert (11.0-15.0) % Plt Count (150-400) K/uL MPV (7.40-12.00) fL Nucleated RBC % /100WBC Nucleated RBCs # K/uL Sodium (136-146) mmol/L Potassium (3.5-5.1) mmol/L Chloride (98-110) mmol/L Carbon Dioxide (21-31) mmol/L BUN (6.0-23.0) mg/dL Creatinine (0.6-1.5) mg/dL Est Cr Clr Drug Dosing mL/min Estimated GFR (MDRD) ml/min Glucose (60-110) mg/dL POC Glucose 149 H (60-110) mg/dL Calcium (8.8-10.8) mg/dL Total Bilirubin (0.1-1.5) mg/dL AST (5-40) IU/L ALT (8-54) IU/L Alkaline Phosphatase (40-150) Troponin I (0.0-0.29) NG/ML Total Protein (6.0-8.0) g/dL Albumin (3.5-5.0) g/dL Globulin (2.0-3.5) g/dL Albumin/Globulin Ratio (1.3-2.8) Med Orders - Current: Current Medications Lipase/Protease/Amylase (Crechencho Davis 24,000 Units) 1 cap PO 6XDAY [facility] Last Admin: 12/26/16 08:59 Dose: 1 cap Fentanyl (Duragesic) 75 mcg TRDERM Q72H [facility] Last Admin: 12/26/16 09:00 Dose: 75 mcg Sodium Chloride (Normal Saline) 1,000 mls @ 75 mls/hr IV ASDIRECTED [facility] Last Admin: 12/25/16 22:34 Dose: 75 mls/hr Insulin Glargine (Lantus Solostar) 24 units SUBCUT BEDTIME [facility] Last Admin: 12/25/16 20:46 Dose: 24 units Lactulose (Chronulac) 10 gm PO Q3H PRN PRN Reason: constipation Last Admin: 12/26/16 09:01 Dose: 10 gm Peptamen Enteral Tube Feeding Own Med 0 ml NJTUBE BEDTIME [facility] Last Admin: 12/25/16 20:54 Dose: 600 ml Ondansetron HCl (Zofran) 4 mg IVPUSH Q4H PRN PRN Reason: Nausea Last Admin: 12/26/16 06:48 Dose: 4 mg Oxycodone HCl (Oxycodone) 10 mg PO Q6H PRN PRN Reason: Pain Last Admin: 12/26/16 06:43 Dose: 10 mg Promethazine HCl (Phenergan) 25 mg PO Q6H PRN PRN Reason: Nausea/Vomiting Promethazine HCl (Phenadoz) 12.5 mg RECTAL Q6H PRN PRN Reason: Nausea/Vomiting Sodium Chloride (Saline Flush) 10 ml FLUSH ASDIRECTED PRN PRN Reason: Keep Vein Open Sodium Chloride (Saline Flush) 2.5 ml FLUSH ASDIRECTED PRN PRN Reason: Keep Vein Open Spironolactone (Aldactone) 100 mg PO DAILY [facility] Last Admin: 12/26/16 09:00 Dose: 100 mg Thiamine HCl (Vitamin B-1) 100 mg PO BEDTIME [facility] Last Admin: 12/25/16 20:45 Dose: 100 mg Discontinued Medications Fentanyl (Duragesic) 75 mcg TRDERM Q72H [facility] Sodium Chloride (Normal Saline) 1,000 mls @ 75 mls/hr IV ASDIRECTED [facility] Last Admin: 12/25/16 11:15 Dose: 125 mls/hr Lactulose (Chronulac) 30 gm FTUBE ONETIME ONE Stop: 12/24/16 14:57 Last Admin: 12/24/16 16:18 Dose: 30 gm Ondansetron HCl (Zofran) 4 mg IVPUSH ONETIME ONE Stop: 12/24/16 15:36 Last Admin: 12/24/16 16:09 Dose: 4 mg Ondansetron HCl (Zofran Odt) 4 mg PO Q8H PRN PRN Reason: Nausea/Vomiting Oxycodone HCl (Oxycodone) 10 mg PO ONETIME ONE Stop: 12/24/16 15:52 Last Admin: 12/24/16 16:09 Dose: 10 mg *Q Meaningful Use (DIS) - VTE *Q VTE Criteria *Q: - Stroke *Q Stroke Criteria *Q: - AMI *Q AMI Criteria *Q:
== END 2016-12-26 12:55 | disposition home or self-care (01) ==
LOC: MW.ED 12:14 → MW.MS 15:51
PROVIDERS: ADMIT Internal Medicine; ATTEND Internal Medicine
DX: T39.1X1A Poisoning by 4-Aminophenol derivatives, accidental (unintentional), initial encounter (principal); K72.90 Hepatic failure, unspecified without coma; E87.1 Hypo-osmolality and hyponatremia; K86.89 Other specified diseases of pancreas; R10.9 Unspecified abdominal pain; G89.29 Other chronic pain; N17.9 Acute kidney failure, unspecified; H91.92 Unspecified hearing loss, left ear; F19.20 Other psychoactive substance dependence, uncomplicated; F41.9 Anxiety disorder, unspecified; F32.9 Major depressive disorder, single episode, unspecified; E11.9 Type 2 diabetes mellitus without complications; E53.8 Deficiency of other specified B group vitamins; Z87.891 Personal history of nicotine dependence; Z79.4 Long term (current) use of insulin; Z79.899 Other long term (current) drug therapy
CPT/HCPCS: 36415; 70450; 71010; 74020; 80053; 81001; 82140; 82962; 83735; 84443; 84484; 85025; 85027; 85610; 93005; 99285; A9270; J1815; J2405; J7040; 51798; 96361; 96374; 96376; G0378

== ENCOUNTER 2017-02-04 22:29 | Emergency (ER) | payer MEDICAID ==
[2017-02-04] MEDS ORDERED: HYDROmorphone 2 MG/ML Syringe IM ONE (22:51)
--- NOTE | 2017-02-04 22:58 | EDM.PDOC ---
ED HPI GENERAL MEDICAL PROBLEM - General Chief Complaint: Gastrointestinal Problem Stated Complaint: CONSTIPATION Time Seen by Provider: 02/04/17 22:37 - History of Present Illness INITIAL COMMENTS - FREE TEXT/NARRATIVE: HISTORY AND PHYSICAL: History of present illness: The patient is a 51-year-old female with a significant past medical history of chronic pancreatitis requiring NG tube feeds and is followed here in our clinic and in fact was seen by the doctor yesterday and had outpatient labs. The patient had a CT scan performed on January 11 which I reviewed and documented pseudocysts but the doctor was going to follow those pseudocysts and repeat the CAT scan in the next week or so. CT scan of January 11 also showed abundant stool in the colon. Patient has had issues with constipation in the past and takes lactulose chronically and according to the daughter at bedside she has had no anterior abdominal pain fever or trouble with her feeds and then at about 5 PM this evening started having severe rectal pain. The patient attempted to give her a laxative pill in addition to her normal lactulose and she only gave one [id number] tablet. Again those meds were given at 5:00 and the patient's pain has intensified in the rectal area. She has had a small stool but not a normal amount. She complains of nothing else other than pain and pressure in her rectum. Review of systems: As per history of present illness and below otherwise all systems reviewed and negative. Past medical history: As per history of present illness and as reviewed below otherwise noncontributory. Surgical history: As per history of present illness and as reviewed below otherwise noncontributory. Social history: No reported history of drug or alcohol abuse. Family history: As per history of present illness and as reviewed below otherwise noncontributory. Physical exam: Gen.: Well-developed well-nourished female who is crying and moaning in the ER and somewhat inconsolable. Patient has a feeding tube in her nares HEENT: Atraumatic, normocephalic, negative for conjunctival pallor or scleral icterus, mucous membranes moist, throat clear, neck supple, nontender, trachea midline. Lungs: Clear to auscultation, breath sounds equal bilaterally, chest nontender. Heart: S1S2, regular rate and rhythm no overt murmurs Abdomen: Soft, nondistended, nontender. Scaphoid Pelvis: Stable nontender. Genitourinary: Deferred. Rectal: There are no gross hemorrhoids or masses appreciated and there are no fissures. There is no fluctuance redness or erythema in the perianal area or along the coccyx margin. On digital exam the patient is grossly impacted with stool that is firm and disimpaction was attempted but the patient could not tolerate it. Extremities: Atraumatic, negative for cords or calf pain. Neurovascular unremarkable. Neuro: Awake, alert, oriented. Neuro is difficult to assess due to the patient' s dramatic response and crying and she is deaf Motor and sensory unremarkable throughout. Exam nonfocal. Diagnostics: Abdominal x-ray Patient had CBC CMP amylase lipase performed yesterday and those test results of been reviewed by me and are within normal limits Therapeutics: Dilaudid enema After some effort with the enemas patient had a very large stool output and feels completely resolved. We will discharge home Impression: Constipation/rectal pain Definitive disposition and diagnosis as appropriate pending reevaluation and review of above. rectal Pain Score (Numeric/FACES): 10 - Related Data Allergies Allergy/AdvReac Type Severity Reaction Status Date / Time No Known Allergies Allergy Verified 02/04/17 22:33 Home Meds: Home Meds Amylase/Lipase/Protease [Deisi GARCIA 24,000 Unit] 1 cap PO 6XDAY 12/10/16 [History] Magnesium Oxide [Magnesium] 400 mg PO BID 12/10/16 [History] Thiamine [Vitamin B-1] 100 mg PO BEDTIME 12/10/16 [History] Ondansetron [Zofran ODT] 4 mg PO Q8H PRN #30 tab.dis 12/15/16 [Rx] Promethazine [Phenadoz] 12.5 mg RECTAL Q6H PRN #8 supp 12/15/16 [Rx] Promethazine [Phenergan] 25 mg PO Q6H PRN #30 tablet 12/15/16 [Rx] fentaNYL [Duragesic] 75 mcg TRDERM Q72H #10 patch 12/15/16 [Rx] Insulin Glargine,Hum.Rec.Anlog [Lantus Solostar] 24 unit SQ BEDTIME 12/24/16 [ History] Nut.Tx.Impaired Digest Fxn [Peptamen] 600 ml NJTUBE BEDTIME 12/24/16 [History] Spironolactone [Aldactone] 100 mg PO DAILY 12/24/16 [History] Lactulose 10 gm PO Q6H PRN 14 Days 12/26/16 [Rx] oxyCODONE 10 mg PO Q6H PRN #10 tablet 12/26/16 [Rx] Past Medical History HEENT History: Reports: Hard of Hearing Other HEENT History: 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, 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 Cardiovascular History: Reports: None Respiratory History: Reports: None Gastrointestinal History: Reports: Hepatitis, Pancreatitis Genitourinary History: Reports: Acute Renal Failure [employer] 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: Reports: None Musculoskeletal History: Reports: None Neurological History: Reports: Seizure, Speech Problems Psychiatric History: Reports: Addiction, Anxiety, Depression, PTSD Endocrine/Metabolic History: Reports: Diabetes, Type II Hematologic History: Reports: B12 Deficiency, Blood Transfusion(s), Folic Acid Immunologic History: Reports: None, Immunosuppression Oncologic (Cancer) History: Reports: None Dermatologic History: Reports: None - Infectious Disease History Infectious Disease History: Reports: None - Past Surgical History Head Surgeries/Procedures: Reports: None Cardiovascular Surgical History: Reports: None GI Surgical History: Reports: Other (See Below) Other GI Surgeries/Procedures: NG tube placed October 06, 2016; biliary stent in place Female Surgical History: Reports: None Social & Family History - Family History Family Medical History: Noncontributory HEENT: Reports: Cataract Cardiac: Reports: Hypertension Psychiatric: Reports: Anxiety, Depression Endocrine/Metabolic: Reports: Diabetes, type II - Tobacco Use Smoking Status *Q: Former Smoker Years of Tobacco use: 8 Packs/Tins Daily: 0.3 Used Tobacco, but Quit: Yes Month Tobacco Last Used: 8 years Second Hand Smoke Exposure: No - Caffeine Use Caffeine Use: Reports: None - Alcohol Use Number of Drinks Per Day: 1 - Recreational Drug Use Recreational Drug Use: No ED ROS GENERAL - Review of Systems Review Of Systems: ROS reveals no pertinent complaints other than HPI. ED EXAM, GENERAL - Physical Exam Exam: See Below (See dictation) Course - Vital Signs Last Recorded V/S: Last Vital Signs Temp 37.1 C 02/04/17 22:33 Pulse 131 H 02/04/17 22:33 Resp 22 H 02/04/17 22:33 BP 127/99 H 02/04/17 22:33 Pulse Ox 97 02/04/17 22:33 - Orders/Labs/Meds Orders: Active Orders 24 hr Category Date Time Status Enema [RC] ASDIRECTED Care 02/04/17 22:53 Active Abdomen 1V Flat [CR] Stat Exams 02/04/17 22:52 Taken Meds: Medications Discontinued Medications Generic Name Dose Route Start Last Admin Trade Name Maxine PRN Reason Stop Dose Admin Hydromorphone HCl 1 mg 02/04/17 22:51 02/04/17 22:58 Dilaudid IM 02/04/17 22:52 1 mg ONETIME ONE Administration Lidocaine HCl 20 ml 02/04/17 23:09 02/04/17 23:15 Xylocaine 2% Viscous PO 02/04/17 23:10 Not Given ONETIME ONE Lidocaine HCl 15 ml 02/04/17 23:14 02/04/17 23:15 Xylocaine 2% Viscous PO 02/04/17 23:15 15 ml ONETIME ONE Administration Lidocaine HCl Confirm 02/04/17 23:15 02/04/17 23:19 Xylocaine 2% Viscous Administered 02/04/17 23:16 Not Given Dose 15 ml .ROUTE .STK-MED ONE Ondansetron HCl 4 mg 02/04/17 23:09 02/04/17 23:14 Zofran Odt PO 02/04/17 23:10 4 mg ONETIME ONE Administration Departure - Departure Time of Disposition: 01:06 Disposition: Home, Self-Care 01 Condition: Good Clinical Impression: Constipation Qualifiers: Constipation type: unspecified constipation type Qualified Code(s): K59.00 - Constipation, unspecified - Discharge Information Forms: ED Department Discharge Additional Instructions: The following information is given to patients seen in the emergency department who are being discharged to home. This information is to outline your options for follow-up care. We provide all patients seen in our emergency department with a follow-up referral. The need for follow-up, as well as the timing and circumstances, are variable depending upon the specifics of your emergency department visit. If you don't have a primary care physician on staff, we will provide you with a referral. We always advise you to contact your personal physician following an emergency department visit to inform them of the circumstance of the visit and for follow-up with them and/or the need for any referrals to a consulting specialist. The emergency department will also refer you to a specialist when appropriate. This referral assures that you have the opportunity for followup care with a specialist. All of these measure are taken in an effort to provide you with optimal care, which includes your followup. Under all circumstances we always encourage you to contact your private physician who remains a resource for coordinating your care. When calling for followup care, please make the office aware that this follow-up is from your recent emergency room visit. If for any reason you are refused follow-up, please contact the [facility] emergency department at and ask to speak to the emergency department charge nurse. [facility] Primary care- [place] [address] Please continue with all home medications and please call and be seen by her provider in the clinic in the next several days for further care and evaluation. Return to ER as needed and as discussed - My Orders Last 24 Hours: My Active Orders 02/04/17 22:52 Abdomen 1V Flat [CR] Stat 02/04/17 22:53 Enema [RC] ASDIRECTED - Assessment/Plan Last 24 Hours: My Active Orders 02/04/17 22:52 Abdomen 1V Flat [CR] Stat 02/04/17 22:53 Enema [RC] ASDIRECTED
[2017-02-04] MEDS ORDERED: Ondansetron 4 MG Tab.DIS PO ONE (23:09)
[2017-02-04] MEDS ORDERED: Lidocaine 2% Viscous Solution 100 ML Bottle PO ONE (23:09)
[2017-02-04] MEDS ORDERED: Lidocaine 2% Viscous Solution 15 ML Cup PO ONE (23:14)
[2017-02-04] MEDS ORDERED: Lidocaine 2% Viscous Solution 15 ML Cup ONE (23:15)
[2017-02-05 01:09] VITALS: BP 109/74
--- NOTE | 2017-02-05 18:16 | CR ---
EXAM DATE: 02/04/17 PATIENT'S AGE: 51 Patient: MARY ELLEN CHIU Facility: [place], [place] Site . Site : 1965 Study: XRay Abdomen [id number]/27/2017 11:34:48 PM Ordering Physician: Brenda Mcdonald Final Report: Indication: Constipation. Technique: Abdomen three views. Comparison: CT abdomen pelvis 05/14/2017. Findings: Feeding tube terminates in the proximal jejunum. Changes consistent with cyst gastrostomy. The bowel gas pattern is nonobstructive. Fecal loading of the colon and rectum. There is marked fecal loading of the rectum. Soft tissues elsewhere as imaged are unremarkable. Visualized osseous structures are intact. Impression: Fecal loading of the colon and rectum with marked fecal loading of the rectum. Dictated by Sunday Rich MD @ 02/04/2017 11:38:33 PM Dictated by: Sunday Rich MD @ 02/04/2017 23:38:48 (Electronic Signature) Report Signed by Proxy. [facility]
== END 2017-02-05 01:15 | disposition home or self-care (01) ==
LOC: MW.ED 22:29
DX: K59.00 Constipation, unspecified (principal); F41.9 Anxiety disorder, unspecified; F32.9 Major depressive disorder, single episode, unspecified; E11.9 Type 2 diabetes mellitus without complications; Z79.899 Other long term (current) drug therapy; Z79.4 Long term (current) use of insulin; Z87.891 Personal history of nicotine dependence
CPT/HCPCS: 74000; 96374; 99283; A9270; J1170

== ENCOUNTER 2017-02-09 15:41 | Emergency (ER) | payer MEDICAID ==
--- NOTE | 2017-02-09 17:08 | EDM.PDOC ---
ED HPI GENERAL MEDICAL PROBLEM - General Chief Complaint: Gastrointestinal Problem Stated Complaint: BLOOD IN STOOL Time Seen by Provider: 02/09/17 17:06 Source of Information: Reports: Patient History Limitations: Reports: No Limitations - History of Present Illness INITIAL COMMENTS - FREE TEXT/NARRATIVE: History of present illness: [51-year-old female presenting with daughter who verbalizes concerns of some blood on stool. Patient had a significant amount of stool evacuated from her in a large bolus in this ED approximately 4 days ago. Patient was seen by home health who indicated that small hard pellets were coming out with some blood on them and there was some amount of concern.] Review of systems: As per history of present illness and below otherwise all systems reviewed and negative. Past medical history: As per history of present illness and as reviewed below otherwise noncontributory. Surgical history: As per history of present illness and as reviewed below otherwise noncontributory. Social history: No reported history of drug or alcohol abuse. Family history: As per history of present illness and as reviewed below otherwise noncontributory. Physical exam: HEENT: Atraumatic, normocephalic, pupils reactive, negative for conjunctival pallor or scleral icterus, mucous membranes moist, throat clear, neck supple, nontender, trachea midline. Lungs: Clear to auscultation, breath sounds equal bilaterally, chest nontender. Heart: S1S2, regular, negative for clicks, rubs, or JVD. Abdomen: Soft, nondistended, nonspecific tenderness. Negative for masses or hepatosplenomegaly. Negative for costovertebral tenderness. Pelvis: Stable nontender. Genitourinary: Deferred. Rectal: Small external hemorrhoids noted, patient declined digital exam. Extremities: Atraumatic, negative for cords or calf pain. Neurovascular unremarkable. Neuro: Awake with low-level interaction. Patient is at her baseline. After suppository patient evacuated small amount of stool, and is demanding an enema to feel like she is empty. Enema given with scant soft stool obtained Preparation H suppository provided Diagnostics: [CT yesterday, CBC, CMP, amylase, lipase, ammonia] Therapeutics: [Ducalox suppository, Preparation H suppository, morphine, Zofran, enema] Impression: [Rectal pain] Plan: [Follow-up with PCP in a.m.] Definitive disposition and diagnosis as appropriate pending reevaluation and review of above. rectum Pain Score (Numeric/FACES): 10 - Related Data Allergies Allergy/AdvReac Type Severity Reaction Status Date / Time No Known Allergies Allergy Verified 02/09/17 15:48 Home Meds: Home Meds Amylase/Lipase/Protease [Deisi GARCIA 24,000 Unit] 1 cap PO 6XDAY 12/10/16 [History] Magnesium Oxide [Magnesium] 400 mg PO BID 12/10/16 [History] Thiamine [Vitamin B-1] 100 mg PO BEDTIME 12/10/16 [History] Ondansetron [Zofran ODT] 4 mg PO Q8H PRN #30 tab.dis 12/15/16 [Rx] Promethazine [Phenadoz] 12.5 mg RECTAL Q6H PRN #8 supp 12/15/16 [Rx] Promethazine [Phenergan] 25 mg PO Q6H PRN #30 tablet 12/15/16 [Rx] fentaNYL [Duragesic] 75 mcg TRDERM Q72H #10 patch 12/15/16 [Rx] Insulin Glargine,Hum.Rec.Anlog [Lantus Solostar] 24 unit SQ BEDTIME 12/24/16 [ History] Nut.Tx.Impaired Digest Fxn [Peptamen] 600 ml NJTUBE BEDTIME 12/24/16 [History] Spironolactone [Aldactone] 100 mg PO DAILY 12/24/16 [History] Lactulose 10 gm PO Q6H PRN 14 Days 12/26/16 [Rx] oxyCODONE 10 mg PO Q6H PRN #10 tablet 12/26/16 [Rx] Past Medical History HEENT History: Reports: Hard of Hearing Other HEENT History: 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, 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 Cardiovascular History: Reports: None Respiratory History: Reports: None Gastrointestinal History: Reports: Hepatitis, Pancreatitis Genitourinary History: Reports: Acute Renal Failure [employer] History: Reports: Musculoskeletal History: Reports: None Neurological History: Reports: Seizure, Speech Problems Psychiatric History: Reports: Addiction, Anxiety, Depression, PTSD Endocrine/Metabolic History: Reports: Diabetes, Type II Hematologic History: Reports: B12 Deficiency, Blood Transfusion(s), Folic Acid Immunologic History: Reports: Immunosuppression Oncologic (Cancer) History: Reports: None Dermatologic History: Reports: None - Infectious Disease History Infectious Disease History: Reports: None - Past Surgical History Head Surgeries/Procedures: Reports: None Cardiovascular Surgical History: Reports: None GI Surgical History: Reports: Other (See Below) Other GI Surgeries/Procedures: NG tube placed October 06, 2016; biliary stent in place Female Surgical History: Reports: None Social & Family History - Family History Family Medical History: Noncontributory HEENT: Reports: Cataract Cardiac: Reports: Hypertension Psychiatric: Reports: Anxiety, Depression Endocrine/Metabolic: Reports: Diabetes, type II - Tobacco Use Smoking Status *Q: Never Smoker Years of Tobacco use: 8 Packs/Tins Daily: 0.3 Used Tobacco, but Quit: Yes Month Tobacco Last Used: 8 years Second Hand Smoke Exposure: No - Caffeine Use Caffeine Use: Reports: None - Alcohol Use Number of Drinks Per Day: 1 - Recreational Drug Use Recreational Drug Use: No ED ROS GENERAL - Review of Systems Review Of Systems: See Below (The history of present illness.) ED EXAM, GI/ABD - Physical Exam Exam: See Below (See history of present illness) Course - Vital Signs Last Recorded V/S: Last Vital Signs Temp 36.1 C 02/09/17 15:49 Pulse 83 02/09/17 19:05 Resp 20 02/09/17 19:05 BP 100/64 02/09/17 19:05 Pulse Ox 99 02/09/17 19:05 - Orders/Labs/Meds Labs: Laboratory Tests 02/09/17 02/09/17 02/09/17 Range/Units 16:20 16:20 17:20 WBC 12.76 H (4.0-11.0) K/uL RBC 4.11 L (4.30-5.90) M/uL Hgb 12.7 (12.0-16.0) g/dL Hct 37.4 (36.0-46.0) % MCV 91.0 (80.0-98.0) fL MCH 30.9 (27.0-32.0) pg MCHC 34.0 (31.0-37.0) g/dL RDW Std Deviation 51.4 (28.0-62.0) fl RDW Coeff of Bert 15 (11.0-15.0) % Plt Count 346 (150-400) K/uL MPV 11.50 (7.40-12.00) fL Neut % (Auto) 67.4 (48.0-80.0) % Lymph % (Auto) 20.7 (16.0-40.0) % Troup % (Auto) 9.2 (0.0-15.0) % Eos % (Auto) 2.4 (0.0-7.0) % Baso % (Auto) 0.3 (0.0-1.5) % Neut # (Auto) 8.6 H (1.4-5.7) K/uL Lymph # (Auto) 2.6 H (0.6-2.4) K/uL Troup # (Auto) 1.2 H (0.0-0.8) K/uL Eos # (Auto) 0.3 (0.0-0.7) K/uL Baso # (Auto) 0.0 (0.0-0.1) K/uL Nucleated RBC % 0.0 /100WBC Nucleated RBCs # 0 K/uL Sodium 132 L (136-146) mmol/L Potassium 4.9 (3.5-5.1) mmol/L Chloride 104 (98-110) mmol/L Carbon Dioxide 17 L (21-31) mmol/L BUN 7 (6.0-23.0) mg/dL Creatinine 1.0 (0.6-1.5) mg/dL Est Cr Clr Drug Dosing 52.77 mL/min Estimated GFR (MDRD) 58.7 ml/min Glucose 76 (60-110) mg/dL Calcium 9.8 (8.8-10.8) mg/dL Total Bilirubin 0.5 (0.1-1.5) mg/dL AST 28 (5-40) IU/L ALT 14 (8-54) IU/L Alkaline Phosphatase 121 (40-150) Ammonia 42 (14-68) UG/DL Total Protein 8.2 H (6.0-8.0) g/dL Albumin 3.7 (3.5-5.0) g/dL Globulin 4.5 H (2.0-3.5) g/dL Albumin/Globulin Ratio 0.8 L (1.3-2.8) Amylase 35 (10-90) U/L Lipase < 8 (7-80) U/L Meds: Medications Discontinued Medications Generic Name Dose Route Start Last Admin Trade Name Freq PRN Reason Stop Dose Admin Bisacodyl 10 mg 02/09/17 18:48 02/09/17 19:04 Dulcolax RECTAL 02/09/17 18:49 10 mg ONETIME ONE Administration Odanah Butter/Phenylephrine 1 each 02/09/17 19:48 02/09/17 20:08 Preparation H Supp RECTAL 02/09/17 19:49 1 each ONETIME ONE Administration Lactulose 15 gm 02/09/17 17:19 02/09/17 17:50 Chronulac PO 02/09/17 17:20 15 gm ONETIME ONE Administration Morphine Sulfate 2 mg 02/09/17 17:19 02/09/17 17:28 Morphine IVPUSH 02/09/17 17:20 2 mg ONETIME ONE Administration Morphine Sulfate 2 mg 02/09/17 19:48 02/09/17 20:02 Morphine IV 02/09/17 19:49 2 mg ONETIME ONE Administration Ondansetron HCl 8 mg 02/09/17 19:48 02/09/17 19:59 Zofran IVPUSH 02/09/17 19:49 8 mg ONETIME ONE Administration Departure - Departure Time of Disposition: 21:27 Disposition: Home, Self-Care 01 Condition: Good Clinical Impression: Anal or rectal pain - Discharge Information Forms: ED Department Discharge Additional Instructions: The following information is given to patients seen in the emergency department who are being discharged to home. This information is to outline your options for follow-up care. We provide all patients seen in our emergency department with a follow-up referral. The need for follow-up, as well as the timing and circumstances, are variable depending upon the specifics of your emergency department visit. If you don't have a primary care physician on staff, we will provide you with a referral. We always advise you to contact your personal physician following an emergency department visit to inform them of the circumstance of the visit and for follow-up with them and/or the need for any referrals to a consulting specialist. The emergency department will also refer you to a specialist when appropriate. This referral assures that you have the opportunity for follow-up care with a specialist. All of these measure are taken in an effort to provide you with optimal care, which includes your follow-up. Under all circumstances we always encourage you to contact your private physician who remains a resource for coordinating your care. When calling for follow-up care, please make the office aware that this follow-up is from your recent emergency room visit. If for any reason you are refused follow-up, please contact the [facility] at and asked to speak to the emergency department charge nurse. Follow-up with Dr. Benz in the a.m. Return to ED as needed as discussed
[2017-02-09] MEDS ORDERED: Morphine 2 MG/ML Syringe IVPUSH ONE (17:19)
[2017-02-09] MEDS ORDERED: Lactulose Soln 10 GM/15 ML 15 ML UD Cup PO ONE (17:19)
[2017-02-09 17:21] LABS: CHLORIDE,CL 104 mmol/L (98-110); SODIUM,NA 132 mmol/L (136-146)
[2017-02-09] MEDS ORDERED: Bisacodyl 10 MG Supp RECTAL ONE (18:48)
[2017-02-09] MEDS ORDERED: Cocoa Butter/Phenylephrine Rectal Supp RECTAL ONE (19:48)
[2017-02-09] MEDS ORDERED: Ondansetron 4 MG/2 ML SDV IVPUSH ONE (19:48)
[2017-02-09] MEDS ORDERED: Morphine 10 MG/ML Syringe IV ONE (19:48)
[2017-02-09 21:42] VITALS: BP 126/80
== END 2017-02-09 21:38 | disposition home or self-care (01) ==
LOC: MW.ED 15:41
DX: K62.89 Other specified diseases of anus and rectum (principal); F41.9 Anxiety disorder, unspecified; F32.9 Major depressive disorder, single episode, unspecified; Z79.899 Other long term (current) drug therapy; Z79.4 Long term (current) use of insulin
CPT/HCPCS: 80053; 82140; 82150; 83690; 85025; 96374; 96375; 96376; 99283; A9270; J2270; J2405; 99284